=== PATIENT | male | born 1945 | race Caucasian/White ===

== ENCOUNTER 2022-05-30 10:01 | Inpatient (IN) | payer MEDICARE, SELFPAY ==
--- NOTE | 2022-05-30 | ECG_ITS ---
Test Reason : UNRESPONSIVE Blood Pressure : / mmHG Vent. Rate : 094 BPM Atrial Rate : 000 BPM P-R Int : 000 ms QRS Dur : 098 ms QT Int : 390 ms P-R-T Axes : 000 002 006 degrees QTc Int : 487 ms Atrial fibrillation with premature ventricular or aberrantly conducted complexes Nonspecific ST abnormality Prolonged QT Abnormal ECG No previous ECGs available Referred By: Zak Ignacio Electronically Signed By:Lester Messer
--- NOTE | ~2022-05-30 | CT_ITS ---
EXAMINATION: CT ABDOMEN AND PELVIS WITHOUT CONTRAST CLINICAL INFORMATION: Recurrent complicated urinary tract infection COMPARISON: None TECHNIQUE: Multidetector volumetric imaging was performed from the superior aspect of the liver through the pubic symphysis. Sagittal and coronal reformatted images were obtained on the technologist's workstation. This CT examination was performed using dose optimization techniques as appropriate, variously including the following: *Automated exposure control *Adjustment of mA and/or kV according to patient size (this includes techniques or standardized protocols for targeted exams where dose is matched to indication/reason for exam; i.e. extremities or head) *Use of iterative reconstruction technique DLP: 506 mGy-cm FINDINGS: LUNG BASES: Small bilateral pleural effusions. Left lower lobe atelectasis. Enlarged heart. Coronary artery calcifications. Pleural calcification over the diaphragm bilaterally. LIVER, GALLBLADDER, AND BILIARY TREE: The liver is normal in size, shape, and attenuation. No focal hepatic lesion or biliary ductal dilatation is present. The gallbladder is contracted with no evidence of radiopaque gallstones, gallbladder wall thickening, or obvious pericholecystic inflammatory changes. PANCREAS: Unremarkable. SPLEEN: Unremarkable. ADRENAL GLANDS: Unremarkable. KIDNEYS AND URETERS: Atrophic right kidney. Normal size left kidney. Prominent bilateral renal pelvises . The ureters are normal in caliber extending to an ileal conduit in the right lower quadrant. There is a left lower pole 0.3 cm calculus which is 8 cm from the posterior axillary line. There are at least 3 right-sided renal calculi measuring up to 0.2 cm. A lower pole calculus is 6 cm from the posterior axillary line. BLADDER: Cystoprostatectomy. Right lower quadrant ileal conduit with no gross abnormality. GASTROINTESTINAL TRACT: The stomach is unremarkable. Normal caliber small bowel. No obstruction. No colonic wall thickening or inflammation. No free air or free fluid. ABDOMINAL WALL: No significant hernia. Mild anasarca. Right lower quadrant ileal conduit. Femorofemoral bypass graft noted. LYMPH NODES: Normal. VASCULAR: Aortic stent graft in place. Prominent atherosclerotic calcifications throughout. 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 PELVIC VISCERA: Cystoprostatectomy. OSSEOUS STRUCTURES: No acute or suspicious osseous abnormality. Mild compression at the L1 vertebral body superior endplate noted. Total left hip arthroplasty without evidence of failure. CT/CT abdomen pelvis wo IV con IMPRESSION: 1. No acute findings in the abdomen or pelvis. No inflammatory changes. 2. Atrophic right kidney. Prominent bilateral renal pelvises with normal caliber ureters extending to an ileal conduit in the right lower quadrant. 3. Small bilateral pleural effusions. Fleischner guidelines were followed.
--- NOTE | ~2022-05-30 | CT_ITS ---
EXAMINATION: CT HEAD WITHOUT CONTRAST CLINICAL INFORMATION: Weakness. Change in mental status. COMPARISON: None TECHNIQUE: Contiguous axial imaging was performed from the skull base to vertex without intravenous administration of contrast. This CT examination was performed using dose optimization techniques as appropriate, variously including the following: *Automated exposure control *Adjustment of mA and/or kV according to patient size (this includes techniques or standardized protocols for targeted exams where dose is matched to indication/reason for exam; i.e. extremities or head) *Use of iterative reconstruction technique DLP: 722 mGy-cm FINDINGS: No intracranial hemorrhage, tumors or acute infarcts noted. Moderate diffuse commensurate prominence of ventricles and sulci. Confluent periventricular and subcortical white matter patchy hypodensities. Dense segmental calcific atherosclerosis of the cavernous portions of the internal carotid arteries. Bilateral optic drusen calcifications noted. No significant opacification of the visualized paranasal sinuses, mastoid air cells and middle ear cavities. CT/CT head/brain wo IV con IMPRESSION: *No acute intracranial abnormalities. *Diffuse parenchymal volume loss and chronic microangiopathic ischemic changes.
--- NOTE | ~2022-05-30 | XR_ITS ---
EXAMINATION: XR CHEST CLINICAL INFORMATION: Change in mental status COMPARISON: None TECHNIQUE: Frontal view of the chest was obtained. FINDINGS: Cardiac silhouette is normal in size. The lungs are adequately aerated. There appears to be a few subtle airspace opacities of the lower lungs. Suspected pleural calcifications of the lung bases. No gross pleural effusion. No pneumothorax. Partially visualized vascular stent of the abdomen. XR/XR chest 1V IMPRESSION: Suspected subtle airspace opacities of the lower lungs. This is a nonspecific finding and may represent atelectasis, however, a developing infiltrate is also within the differential.
[2022-05-30 10:13] VITALS: BP 166/79; BP 169/97; PULSE 95; PULSE 98; RESP 14; TEMP 36.9; O2SAT 97; O2SAT 98; BMI 23.0
[2022-05-30 10:17] VITALS: BP 169/97; PULSE 101; RESP 16; TEMP 36.9; O2SAT 99
--- NOTE | 2022-05-30 10:44 | ED_ITS ---
HPI - General Adult General Chief complaint: General Medical Stated complaint: unresponsive? Time Seen by Provider: 05/30/22 10:43 Source: patient Mode of arrival: EMS Limitations: no limitations History of Present Illness HPI narrative: 76-year-old male who was sent to the emergency department from his [facility] facility for evaluation of altered mental status. Patient states that he woke up this morning, shaved, did not eat breakfast and then went back to bed. He states that the next thing he remembers is waking up and he was being placed an ambulance. He states that he has been staying at this nursing facility for several weeks prior to that was living at home. I reviewed an outside record from [facility] dated 05/26/2022. The patient was admitted to the [facility] on 05/21/2022 for metabolic SIADH. Patient was hospitalized from 05/10 through 1227 due to acute mental status changes and weakness. The patient had asymptomatic bacteriuria and was treated with antibiotics due to chronic urostomy. Patient had electrolyte abnormalities including hypokalemia, hypomagnesemia, hyponatremia. Patient had a renal consult the felt that he had SIADH and was started on demeclocycline 150 mg twice a day., elevated D-dimer and a CTA which was negative for pulmonary embolism. EEG was negative for seizures. Related Data Allergies Allergy/AdvReac Type Severity Reaction Status Date / Time lisinopril Allergy Rash Verified 05/30/22 10:41 Review of Systems Review of Systems: Yes all other systems are reviewed and are negative [facility] Past Medical History [facility] Narrative: Past medical history: Obtained from nursing transfer note: Hyponatremia/SI ADH on fluid restriction, hypomagnesemia, hypokalemia, failure to thrive, congestive heart failure with preserved ejection fraction, atrial fibrillation with hypercoagulable state, status post Watchman device, dyslipidemia, asymptomatic bacteremia, urostomy, Medical History (Updated 05/30/22 @ 16:06 by Zak Ignacio MD) (HFpEF) heart failure with preserved ejection fraction Atrial fibrillation History of SIADH Presence of Watchman left atrial appendage closure device Surgical History (Updated 05/30/22 @ 16:05 by Wilma Matos NP) History of urostomy S/P ORIF (open reduction internal fixation) fracture Social History Social History Advance Directives: Yes Advance Directives Information Provided: No Advance Directives on File: No Physical Exam ED Vital Signs: Vital Signs - 24 hr 05/30/22 10:13 05/30/22 10:17 05/30/22 11:19 Temperature 98.4 F 98.4 F 98.3 F Pulse Rate 95 101 H 84 Respiratory Rate 14 16 16 Blood Pressure 169/97 H 169/97 H 134/74 Pulse Oximetry 97 99 98 Oxygen Delivery Method Room Air Room Air Room Air 05/30/22 13:22 Temperature Pulse Rate 86 Respiratory Rate 13 Blood Pressure 154/89 H Pulse Oximetry 98 Oxygen Delivery Method Room Air BMI result Body Mass Index 23.0 Const Other: Awake, alert, male patient, does not appear to be in distress, does answer questions appropriately, oriented to person and place HENMT Head: Yes normal to inspection, Yes normocephalic and Yes atraumatic Ears: external ears normal General nose exam: Normal external nose present Face and sinus: Yes normal facial exam Mouth: Normal oral and palatal mucosa present Throat: Yes posterior oropharynx normal Eyes General: appearance normal, both eyes and all related structures Pupils: Equal, round and reactive pupils present Neck Neck: Yes normal visual inspection, Yes no lymphadenopathy, Yes trachea midline and Yes supple Chest Chest palpation & inspection: normal inspection of the chest and normal palpation of entire chest wall Resp Effort & Inspection: normal respiratory effort and able to speak in complete sentences Auscultation: clear to auscultation bilaterally Cardio Rate: regular rate Rhythm: regular rhythm Heart sounds: S1 normal heart sound present, S2 normal heart sound present and no murmurs GI Inspection: Yes other (Right lower quadrant urostomy, clear, yellow urine in the bad) Palpation (GI): Soft to palpation, nontender and no guarding Auscultation: normal bowel sounds General: Yes no CVA tenderness Back/Spine/Pelvis Back: no CVA tenderness Skin General skin exam: no rashes or lesions noted Neuro Cranial nerves: Yes CN's II-XII intact bilaterally and Yes Equal, round and reactive pupils present Cognition (Neuro): normal cognition Motor exam (neuro): 5/5 motor strength present throughout Extrem General: Yes normal to inspection Psych Appearance: grossly normal Speech and movement: Normal speech and movement present Affect: normal affect Medications Administered Discontinued Medications Generic Name Dose Route Start Last Admin Trade Name Freq PRN Reason Stop Dose Admin Ceftriaxone Sodium 1 gm/ 50 mls @ 100 mls/hr 05/30/22 15:11 05/30/22 15:21 Sodium Chloride IV 05/30/22 15:40 100 mls/hr ONCE ONE Administration Medical Decision Making Medical Decision Making MDM Narrative: 76-year-old male who was sent to the emergency department for evaluation of altered mental status. Patient reports that he got up this morning, he then had when back to bed and he remembers waking up while he was being placed in the ambulance. Patient denied being ill prior to this event. In reviewing his record, the patient was recently hospitalized 05/10 through for multiple electrolyte abnormalities and asymptomatic bacteremia secondary to his chronic urostomy. Given this history, I ordered a CBC, CMP, lipase, BNP, magnesium, PT/INR, PTT, troponin, TSH, urinalysis, COVID-19, influenza and RSV. Two sets of blood cultures will be obtained. CT scan of the brain and chest x- ray will also be obtained. Patient will be kept on a fluid restriction. 1443: Patient's , Martha came to the emergency department and gave me more information. The patient has not been doing well since he had an elective AAA repair abrasion when women 03/11/2022 patient then had a hip fracture and was at [facility]. He then became ill was at [facility] again where he was diagnosed with the multiple electrolyte abnormalities and SIADH. The states that at the care facility at got him up this morning and help him she shape. At 09:15 hours the 8 went back to check on him and your mary ble to wake him up. He was gazing off and looking into space. The states that he has had at least 3 episodes of this type of behavior in the past either secondary to dehydration or urinary tract infection. She states that over the past 2-3 days he has complained of increased thirst but is state on a fluid restriction Laboratory radiology interpretation by me as follows: Mild anemia with an H&H of 10 and 32. Normal electrolytes. Elevated alk-phos 132. Normal TSH. AST, ALT and COVID-19 were negative. Urinalysis was positive for blood, positive leukocyte esterase, positive nitrates. Microscopic revealed 6-10 RBCs, 21-50 WBCs and 4+ bacteria-of note this comes from the patient's urostomy. Chest x-ray on my review revealed no acute findings, CT scan of the brain on my review revealed no acute findings. Given the patient's altered mental status I am concerned that he may have a urinary tract infection and may be bacteremic, he has had similar presentations in the past. I will discuss admission and antibiotic choice with covering hospitalist. 1604: I did discuss the patient's presentation with the covering hospitalist nurse-practitioner Wilma Matos, patient will be treated with ceftriaxone 1 g IV and the patient will be admitted for further management. Differential Diagnosis Differential diagnosis includes was not limited to stroke, cerebral bleed, metabolic syndrome, pneumonia, bacteremia, urinary tract infection Lab Data 05/30/22 10:49 05/30/22 10:49 Labs: Lab Results 05/30/22 05/30/22 05/30/22 Range/Units 10:49 10:49 11:10 WBC 7.7 (4.8-10.8) X10*3/uL RBC 3.71 L (4.60-5.80) X10*6/uL Hgb 10.2 L (14.0-18.0) g/dl Hct 32.5 L (42.0-52.0) % MCV 87.6 (80.0-98.0) fL MCH 27.5 (27.0-33.0) pg MCHC 31.4 (31.0-36.0) g/dl RDW 15.6 (11.0-16.0) % Plt Count 220 (160-400) X10*3/uL MPV 8.4 L (9.4-12.4) fL Immature Gran % (Auto) 0.7 H (0.0-0.4) % Neut % (Auto) 61.1 (45-73) % Lymph % (Auto) 22.7 (20-40) % Woodruff % (Auto) 8.2 (2-11) % Eos % (Auto) 6.5 H (0-4) % Baso % (Auto) 0.8 (0-2) % Lymph # (Auto) 1.7 (1.2-4.9) X10*3/uL Woodruff # (Auto) 0.6 (0.1-1.2) X10*3/uL Eos # (Auto) 0.5 H (0.0-0.4) X10*3/uL Baso # (Auto) 0.1 (0.0-0.2) X10*3/uL Abs Immat Gran (auto) 0.05 H (0.00-0.03) X10*3/uL Absolute Neuts (auto) 4.7 (2.0-8.3) x10*3/uL Absolute Nucleated RBC 0.000 (0.0-0.012) X10*3/uL Nucleated RBC % (auto) 0.0 (0.0-0.2) /100WBC PT (10.0-13.1) SEC INR (0.9-1.1) APTT (26.0-36.4) SEC Sodium 137 (135-145) mmol/L Potassium 4.3 (3.3-5.1) mmol/L Chloride 102 (96-108) mmol/L Carbon Dioxide 26 (22-29) mmol/L Anion Gap 13 (12-20) BUN 24 H (9-16) mg/dL Creatinine 1.03 (0.5-1.4) mg/dL Estim Creat Clear Calc 65.5 Estimated GFR > 60 Random Glucose 116 H (60-115) mg/dL Lactic Acid (0.5-2.0) mmol/L Calcium 10.3 H (8.4-10.2) mg/dL Magnesium 1.9 (1.6-2.6) mg/dL Total Bilirubin 0.4 (0.0-1.0) mg/dL AST 25 (5-37) U/L ALT 10 (0-40) U/L Alkaline Phosphatase 132 H (39-117) U/L Total Creatine Kinase 8 L (38-174) U/L Troponin I High Sens (<3.5-35.0) ng/L B-Natriuretic Peptide (<100) pg/mL Total Protein 6.8 (6.5-8.0) g/dL Albumin 3.4 L (3.5-5.0) g/dL Lipase 33 (8-78) U/L TSH (0.32-4.0) uIU/mL Urine Color Urine Appearance Urine pH (5.0-9.0) Ur Specific Hamilton (1.005-1.025) Urine Protein (Neg-Trace) mg/dL Urine Glucose (UA) (Negative) mg/dL Urine Ketones (Negative) mg/dL Urine Blood (Negative) Urine Nitrite (Negative) Ur Leukocyte Esterase (Negative) Urine RBC (0-2) /HPF Urine WBC (0-5) /HPF Ur Squamous Epith Cells (0-2) /HPF Urine Bacteria (None Seen) Hyaline Casts (0-2) /LPF Influenza Type A (PCR) (Negative) Influenza Type B (PCR) (Negative) RSV RNA Qual (PCR) (Negative) SARS-CoV-2 RNA (RT-PCR) (Negative) 05/30/22 05/30/22 05/30/22 Range/Units 11:10 11:10 11:10 WBC (4.8-10.8) X10*3/uL RBC (4.60-5.80) X10*6/uL Hgb (14.0-18.0) g/dl Hct (42.0-52.0) % MCV (80.0-98.0) fL MCH (27.0-33.0) pg MCHC (31.0-36.0) g/dl RDW (11.0-16.0) % Plt Count (160-400) X10*3/uL MPV (9.4-12.4) fL Immature Gran % (Auto) (0.0-0.4) % Neut % (Auto) (45-73) % Lymph % (Auto) (20-40) % Woodruff % (Auto) (2-11) % Eos % (Auto) (0-4) % Baso % (Auto) (0-2) % Lymph # (Auto) (1.2-4.9) X10*3/uL Woodruff # (Auto) (0.1-1.2) X10*3/uL Eos # (Auto) (0.0-0.4) X10*3/uL Baso # (Auto) (0.0-0.2) X10*3/uL Abs Immat Gran (auto) (0.00-0.03) X10*3/uL Absolute Neuts (auto) (2.0-8.3) x10*3/uL Absolute Nucleated RBC (0.0-0.012) X10*3/uL Nucleated RBC % (auto) (0.0-0.2) /100WBC PT 11.8 (10.0-13.1) SEC INR 1.0 (0.9-1.1) APTT 30.6 (26.0-36.4) SEC Sodium (135-145) mmol/L Potassium (3.3-5.1) mmol/L Chloride (96-108) mmol/L Carbon Dioxide (22-29) mmol/L Anion Gap (12-20) BUN (9-16) mg/dL Creatinine (0.5-1.4) mg/dL Estim Creat Clear Calc Estimated GFR Random Glucose (60-115) mg/dL Lactic Acid 1.0 (0.5-2.0) mmol/L Calcium (8.4-10.2) mg/dL Magnesium (1.6-2.6) mg/dL Total Bilirubin (0.0-1.0) mg/dL AST (5-37) U/L ALT (0-40) U/L Alkaline Phosphatase (39-117) U/L Total Creatine Kinase (38-174) U/L Troponin I High Sens (<3.5-35.0) ng/L B-Natriuretic Peptide 326 H (<100) pg/mL Total Protein (6.5-8.0) g/dL Albumin (3.5-5.0) g/dL Lipase (8-78) U/L TSH (0.32-4.0) uIU/mL Urine Color Urine Appearance Urine pH (5.0-9.0) Ur Specific Hamilton (1.005-1.025) Urine Protein (Neg-Trace) mg/dL Urine Glucose (UA) (Negative) mg/dL Urine Ketones (Negative) mg/dL Urine Blood (Negative) Urine Nitrite (Negative) Ur Leukocyte Esterase (Negative) Urine RBC (0-2) /HPF Urine WBC (0-5) /HPF Ur Squamous Epith Cells (0-2) /HPF Urine Bacteria (None Seen) Hyaline Casts (0-2) /LPF Influenza Type A (PCR) (Negative) Influenza Type B (PCR) (Negative) RSV RNA Qual (PCR) (Negative) SARS-CoV-2 RNA (RT-PCR) (Negative) 05/30/22 05/30/22 05/30/22 Range/Units 11:10 11:10 11:10 WBC (4.8-10.8) X10*3/uL RBC (4.60-5.80) X10*6/uL Hgb (14.0-18.0) g/dl Hct (42.0-52.0) % MCV (80.0-98.0) fL MCH (27.0-33.0) pg MCHC (31.0-36.0) g/dl RDW (11.0-16.0) % Plt Count (160-400) X10*3/uL MPV (9.4-12.4) fL Immature Gran % (Auto) (0.0-0.4) % Neut % (Auto) (45-73) % Lymph % (Auto) (20-40) % Woodruff % (Auto) (2-11) % Eos % (Auto) (0-4) % Baso % (Auto) (0-2) % Lymph # (Auto) (1.2-4.9) X10*3/uL Woodruff # (Auto) (0.1-1.2) X10*3/uL Eos # (Auto) (0.0-0.4) X10*3/uL Baso # (Auto) (0.0-0.2) X10*3/uL Abs Immat Gran (auto) (0.00-0.03) X10*3/uL Absolute Neuts (auto) (2.0-8.3) x10*3/uL Absolute Nucleated RBC (0.0-0.012) X10*3/uL Nucleated RBC % (auto) (0.0-0.2) /100WBC PT (10.0-13.1) SEC INR (0.9-1.1) APTT (26.0-36.4) SEC Sodium (135-145) mmol/L Potassium (3.3-5.1) mmol/L Chloride (96-108) mmol/L Carbon Dioxide (22-29) mmol/L Anion Gap (12-20) BUN (9-16) mg/dL Creatinine (0.5-1.4) mg/dL Estim Creat Clear Calc Estimated GFR Random Glucose (60-115) mg/dL Lactic Acid (0.5-2.0) mmol/L Calcium (8.4-10.2) mg/dL Magnesium (1.6-2.6) mg/dL Total Bilirubin (0.0-1.0) mg/dL AST (5-37) U/L ALT (0-40) U/L Alkaline Phosphatase (39-117) U/L Total Creatine Kinase (38-174) U/L Troponin I High Sens < 3.5 (<3.5-35.0) ng/L B-Natriuretic Peptide (<100) pg/mL Total Protein (6.5-8.0) g/dL Albumin (3.5-5.0) g/dL Lipase (8-78) U/L TSH 3.60 (0.32-4.0) uIU/mL Urine Color Urine Appearance Urine pH (5.0-9.0) Ur Specific Hamilton (1.005-1.025) Urine Protein (Neg-Trace) mg/dL Urine Glucose (UA) (Negative) mg/dL Urine Ketones (Negative) mg/dL Urine Blood (Negative) Urine Nitrite (Negative) Ur Leukocyte Esterase (Negative) Urine RBC (0-2) /HPF Urine WBC (0-5) /HPF Ur Squamous Epith Cells (0-2) /HPF Urine Bacteria (None Seen) Hyaline Casts (0-2) /LPF Influenza Type A (PCR) NEGATIVE (Negative) Influenza Type B (PCR) NEGATIVE (Negative) RSV RNA Qual (PCR) NEGATIVE (Negative) SARS-CoV-2 RNA (RT-PCR) NEGATIVE (Negative) 05/30/22 Range/Units 13:32 WBC (4.8-10.8) X10*3/uL RBC (4.60-5.80) X10*6/uL Hgb (14.0-18.0) g/dl Hct (42.0-52.0) % MCV (80.0-98.0) fL MCH (27.0-33.0) pg MCHC (31.0-36.0) g/dl RDW (11.0-16.0) % Plt Count (160-400) X10*3/uL MPV (9.4-12.4) fL Immature Gran % (Auto) (0.0-0.4) % Neut % (Auto) (45-73) % Lymph % (Auto) (20-40) % Woodruff % (Auto) (2-11) % Eos % (Auto) (0-4) % Baso % (Auto) (0-2) % Lymph # (Auto) (1.2-4.9) X10*3/uL Woodruff # (Auto) (0.1-1.2) X10*3/uL Eos # (Auto) (0.0-0.4) X10*3/uL Baso # (Auto) (0.0-0.2) X10*3/uL Abs Immat Gran (auto) (0.00-0.03) X10*3/uL Absolute Neuts (auto) (2.0-8.3) x10*3/uL Absolute Nucleated RBC (0.0-0.012) X10*3/uL Nucleated RBC % (auto) (0.0-0.2) /100WBC PT (10.0-13.1) SEC INR (0.9-1.1) APTT (26.0-36.4) SEC Sodium (135-145) mmol/L Potassium (3.3-5.1) mmol/L Chloride (96-108) mmol/L Carbon Dioxide (22-29) mmol/L Anion Gap (12-20) BUN (9-16) mg/dL Creatinine (0.5-1.4) mg/dL Estim Creat Clear Calc Estimated GFR Random Glucose (60-115) mg/dL Lactic Acid (0.5-2.0) mmol/L Calcium (8.4-10.2) mg/dL Magnesium (1.6-2.6) mg/dL Total Bilirubin (0.0-1.0) mg/dL AST (5-37) U/L ALT (0-40) U/L Alkaline Phosphatase (39-117) U/L Total Creatine Kinase (38-174) U/L Troponin I High Sens (<3.5-35.0) ng/L B-Natriuretic Peptide (<100) pg/mL Total Protein (6.5-8.0) g/dL Albumin (3.5-5.0) g/dL Lipase (8-78) U/L TSH (0.32-4.0) uIU/mL Urine Color Yellow Urine Appearance Cloudy Urine pH 7.0 (5.0-9.0) Ur Specific Hamilton 1.010 (1.005-1.025) Urine Protein Negative (Neg-Trace) mg/dL Urine Glucose (UA) Negative (Negative) mg/dL Urine Ketones Negative (Negative) mg/dL Urine Blood Small (1+) H (Negative) Urine Nitrite Positive H (Negative) Ur Leukocyte Esterase Moderate (2+) H (Negative) Urine RBC 6-10 H (0-2) /HPF Urine WBC 21-50 H (0-5) /HPF Ur Squamous Epith Cells 0-2 (0-2) /HPF Urine Bacteria 4+ (None Seen) Hyaline Casts 3-5 (0-2) /LPF Influenza Type A (PCR) (Negative) Influenza Type B (PCR) (Negative) RSV RNA Qual (PCR) (Negative) SARS-CoV-2 RNA (RT-PCR) (Negative) External Record Review External record reviewed: Outpatient record ([facility] no dated 05/26/2022)
[2022-05-30 10:53] LABS: MANUAL DIFF FLAG NO
[2022-05-30 10:59] LABS: Basophils Absolute Auto 0.1 X10*3/uL (0.0-0.2); Basophils Percent Auto 0.8 % (0-2); Eosinophils Absolute Auto 0.5 X10*3/uL (0.0-0.4); Eosinophils Percent Auto 6.5 % (0-4); Hematocrit 32.5 % (42.0-52.0); Hemoglobin 10.2 g/dl (14.0-18.0); Imm Gran Abs Auto 0.05 X10*3/uL (0.00-0.03); Imm Gran Pct Auto 0.7 % (0.0-0.4); Lymphocytes Absolute Auto 1.7 X10*3/uL (1.2-4.9); Lymphocytes Percent Auto 22.7 % (20-40); Mean Corpuscular HGB Conc 31.4 g/dl (31.0-36.0); Mean Corpuscular Hemoglobin 27.5 pg (27.0-33.0); Mean Corpuscular Volume 87.6 fL (80.0-98.0); Mean Platelet Volume 8.4 fL (9.4-12.4); Monocytes Absolute Auto 0.6 X10*3/uL (0.1-1.2); Monocytes Percent Auto 8.2 % (2-11); Neutrophils Absolute Auto 4.7 x10*3/uL (2.0-8.3); Neutrophils Percent Auto 61.1 % (45-73); Platelet Count 220 X10*3/uL (160-400); Red Blood Count 3.71 X10*6/uL (4.60-5.80); Red Cell Distribution Width 15.6 % (11.0-16.0); White Blood Count 7.7 X10*3/uL (4.8-10.8)
[2022-05-30 11:10] LABS: Alanine Aminotransferase 10 U/L (0-40); Albumin Level 3.4 g/dL (3.5-5.0); Alkaline Phosphatase 132 U/L (39-117); Anion Gap 13 (12-20); Aspartate Amino Transferase 25 U/L (5-37); Bilirubin Total 0.4 mg/dL (0.0-1.0); Blood Urea Nitrogen 24 mg/dL (9-16); Calcium 10.3 mg/dL (8.4-10.2); Carbon Dioxide 26 mmol/L (22-29); Chloride 102 mmol/L (96-108); Creatinine Clr Calc Pharmacy 65.5; Estimated Glomerular Filt Rate > 60; Glucose Random 116 mg/dL (60-115); Potassium 4.3 mmol/L (3.3-5.1); Sodium 137 mmol/L (135-145); Total Protein 6.8 g/dL (6.5-8.0)
--- NOTE | 2022-05-30 11:15 | PC.NURSE ---
Coming from SNF for period of unresponsiveness. Upon EMS arrival, pt was responding to verbal stimuli. At this time pt sleeping, alert and oriented. Responding to questions appropriately. Denies any pain. Awaiting CT and XRAY
[2022-05-30 11:19] VITALS: BP 134/74; PULSE 84; RESP 16; TEMP 36.8; O2SAT 98
[2022-05-30 11:24] LABS: Prothrombin Time 11.8 SEC (10.0-13.1)
[2022-05-30 11:26] LABS: Partial Thromboplastin Time 30.6 SEC (26.0-36.4)
[2022-05-30 11:40] LABS: Troponin-I High Sensitivity < 3.5 ng/L (<3.5-35.0)
[2022-05-30 11:41] LABS: B Type Natriuretic Peptide 326 pg/mL (<100)
[2022-05-30 11:58] LABS: Magnesium 1.9 mg/dL (1.6-2.6)
[2022-05-30 12:00] LABS: Influenza A PCR NEGATIVE (Negative); Influenza B PCR NEGATIVE (Negative); Resp Syncy Virus RNA Qual PCR NEGATIVE (Negative); SARS COV2 PCR INHOUSE NEGATIVE (Negative)
[2022-05-30 12:44] LABS: Lipase 33 U/L (8-78)
[2022-05-30 13:22] VITALS: BP 154/89; PULSE 86; RESP 13; O2SAT 98
[2022-05-30 13:42] LABS: Appearance Urine Cloudy; Color Urine Yellow; Glucose Urine UA Negative (Negative); Leukocyte Esterase Urine Moderate (2+) (Negative); Nitrite Urine Positive (Negative); UMIC TRIGGER UACC YES; Urine Blood Small (1+) (Negative); Urine Ketones Negative (Negative); Urine Protein Negative (Neg-Trace)
[2022-05-30 13:54] LABS: Bacteria Urine 4+ (None Seen); Squamous Epithelial Cell Urine 0-2 /HPF (0-2); UACC Culture Trigger YES; WBC Urine 21-50 /HPF (0-5)
--- NOTE | 2022-05-30 14:35 | PC.NURSE ---
Plan for admission, at bedside aware of plan.
--- NOTE | 2022-05-30 15:09 | PM.IMHP ---
History of Present Illness Date of Service: 05/30/22 Chief Complaint: confusion 76 year old man presenting to the ED from his group home facility for evaluation of altered mental status.? Patient states that he woke up this morning, shaved, did not eat breakfast and then went back to bed.? He states that the next thing he remembers is waking up and he was being placed an ambulance.? He states that he has been staying at this nursing facility for several weeks prior to that was living at home. After his AAA repair in 03/13 he had some medical issues that landed him in rehab including hip fracture and recent dx of SIADH at [facility]. He was subsequently sent to rehab from there. He denied chest pain, shortness breath, nausea, vomiting, diarrhea. He reports he does have a chronic cough that comes and goes but no sputum. Labs within acceptable limits, vital signs stable. He will be admitted for further management and tx of encephalopathy and UTI . Review of Systems Review of Systems: Denies any recent fever chills or decrease in appetite respiratory denies any shortness of breath coverage production cardiovascular denies chest pain gastrointestinal denies any dysphagia abdominal pain nausea vomiting or diarrhea genitourinary denies any dysuria frequency or hematuria musculoskeletal denies any joint pain or swelling neuropsych denies any weakness or seizures all other systems reviewed are negative [facility] Medical History (Updated 05/30/22 @ 16:08 by Wilma Matos NP) (HFpEF) heart failure with preserved ejection fraction Atrial fibrillation History of SIADH Hyperlipidemia Hypertension Presence of Watchman left atrial appendage closure device Pertinent family history: no cardiac disease Surgical History (Updated 05/30/22 @ 16:05 by Wilma Matos NP) History of urostomy S/P ORIF (open reduction internal fixation) fracture Social History Household Members: None Housing: Jail Do you presently have visiting nurse or other home services: No Patient Tobacco Use Status: Former Tobacco user Use of substances other than those prescribed or required for medical reasons: No Currently Displaying Signs/Symptoms of Drug Intoxication Withdrawal: No Have you been hit, kicked, punched, or otherwise hurt by someone within the past year? If so, by whom?: No Do you feel safe in your current relationship?: Yes Is there a partner from a previous relationship who is making you feel unsafe now?: No Are you made to feel afraid or neglected: No Advance Directives: Yes Advance Directives Information Provided: No Advance Directives on File: No Advance Directives Date on File: 05/30/22 Do you have thoughts of harming others: None Do you have a plan to hurt others: No Plan Recently lost weight without trying: No Eating poorly because of decreased appetite: No Nutrition Risks: No Nutritional Risk Poor oral hygiene: No service: No Current occupational status: retired Meds Allergies Allergy/AdvReac Type Severity Reaction Status Date / Time lisinopril Allergy Rash Verified 05/30/22 10:41 Home Medications Medication Instructions Recorded Confirmed Last Taken Type acetaminophen 325 mg tablet 650 mg PO Q4H PRN Pain 05/30/22 05/30/22 Unknown History albuterol sulfate 90 mcg/actuation 2 puff inhalation Q4-6H PRN 05/30/22 05/30/22 Unknown History aerosol inhaler (ProAir HFA) Wheezing aspirin 81 mg tablet,delayed 81 mg PO DAILY 05/30/22 05/30/22 Unknown History release brimonidine 0.2 % eye drops 1 drp ophthalmic (eye) DAILY 05/30/22 05/30/22 Unknown History demeclocycline 150 mg tablet 150 mg PO BID 05/30/22 05/30/22 Unknown History diltiazem HCl 120 mg 1 cap PO DAILY 05/30/22 05/30/22 Unknown History capsule,extended release 24 hr (Cartia XT) docusate sodium 100 mg capsule 100 mg PO BID 05/30/22 05/30/22 Unknown History (Colace) heparin (porcine) 5,000 unit/mL 5,000 unit subcut Q12H 05/30/22 05/30/22 Unknown History injection solution magnesium oxide 400 mg (241.3 mg 400 mg PO BID 05/30/22 05/30/22 Unknown History magnesium) tablet (MagOx) metoprolol succinate 100 mg 150 mg PO DAILY 05/30/22 05/30/22 Unknown History tablet,extended release 24 hr mirtazapine 15 mg tablet 15 mg PO BEDTIME 05/30/22 05/30/22 Unknown History sennosides 8.6 mg tablet (senna) 8.6 mg PO DAILY 05/30/22 05/30/22 Unknown History simvastatin 10 mg tablet 10 mg PO DAILY 05/30/22 05/30/22 Unknown History Physical Exam Vital Signs and Narrative: Vital Signs: Last Vital Signs Temp 98.3 F 05/30/22 11:19 Pulse 86 05/30/22 13:22 Resp 13 05/30/22 13:22 BP 154/89 H 05/30/22 13:22 Pulse Ox 98 05/30/22 13:22 O2 Del Method 05/30/22 13:22 BMI result Body Mass Index 23.0 Appearing in no acute distress head is normocephalic atraumatic eyes pupils are PERRLA sclera is anicteric mouth throat mucous membranes are intact and moist neck is supple no lymphadenopathy, no JVD noted lung sounds Rhonchi heart IRIR positive bowel sounds, abdomen is soft, nontender neuro patient is alert x3, no focal deficits Bruising to LE urostomy present Results Labs 05/30/22 10:49 05/30/22 10:49 Labs: Laboratory Results - last 24 hr 05/30/22 05/30/22 05/30/22 10:49 10:49 11:10 MCV 87.6 MCH 27.5 MCHC 31.4 RDW 15.6 Plt Count 220 MPV 8.4 L Immature Gran % (Auto) 0.7 H Neut % (Auto) 61.1 Lymph % (Auto) 22.7 [place] % (Auto) 8.2 Eos % (Auto) 6.5 H Baso % (Auto) 0.8 Lymph # (Auto) 1.7 [place] # (Auto) 0.6 Eos # (Auto) 0.5 H Baso # (Auto) 0.1 Abs Immat Gran (auto) 0.05 H Absolute Neuts (auto) 4.7 Absolute Nucleated RBC 0.000 Nucleated RBC % (auto) 0.0 PT INR APTT Anion Gap 13 Estim Creat Clear Calc 65.5 Estimated GFR > 60 Random Glucose 116 H Lactic Acid Calcium 10.3 H Magnesium 1.9 Total Bilirubin 0.4 AST 25 ALT 10 Alkaline Phosphatase 132 H Total Creatine Kinase 8 L Troponin I High Sens B-Natriuretic Peptide Total Protein 6.8 Albumin 3.4 L Lipase 33 TSH Urine Color Urine Appearance Urine pH Ur Specific [place] Urine Protein Urine Glucose (UA) Urine Ketones Urine Blood Urine Nitrite Ur Leukocyte Esterase Urine RBC Urine WBC Ur Squamous Epith Cells Urine Bacteria Hyaline Casts Influenza Type A (PCR) Influenza Type B (PCR) RSV RNA Qual (PCR) SARS-CoV-2 RNA (RT-PCR) 05/30/22 05/30/22 05/30/22 11:10 11:10 11:10 MCV MCH MCHC RDW Plt Count MPV Immature Gran % (Auto) Neut % (Auto) Lymph % (Auto) [place] % (Auto) Eos % (Auto) Baso % (Auto) Lymph # (Auto) [place] # (Auto) Eos # (Auto) Baso # (Auto) Abs Immat Gran (auto) Absolute Neuts (auto) Absolute Nucleated RBC Nucleated RBC % (auto) PT 11.8 INR 1.0 APTT 30.6 Anion Gap Estim Creat Clear Calc Estimated GFR Random Glucose Lactic Acid 1.0 Calcium Magnesium Total Bilirubin AST ALT Alkaline Phosphatase Total Creatine Kinase Troponin I High Sens B-Natriuretic Peptide 326 H Total Protein Albumin Lipase TSH Urine Color Urine Appearance Urine pH Ur Specific [place] Urine Protein Urine Glucose (UA) Urine Ketones Urine Blood Urine Nitrite Ur Leukocyte Esterase Urine RBC Urine WBC Ur Squamous Epith Cells Urine Bacteria Hyaline Casts Influenza Type A (PCR) Influenza Type B (PCR) RSV RNA Qual (PCR) SARS-CoV-2 RNA (RT-PCR) 05/30/22 05/30/22 05/30/22 11:10 11:10 11:10 MCV MCH MCHC RDW Plt Count MPV Immature Gran % (Auto) Neut % (Auto) Lymph % (Auto) [place] % (Auto) Eos % (Auto) Baso % (Auto) Lymph # (Auto) [place] # (Auto) Eos # (Auto) Baso # (Auto) Abs Immat Gran (auto) Absolute Neuts (auto) Absolute Nucleated RBC Nucleated RBC % (auto) PT INR APTT Anion Gap Estim Creat Clear Calc Estimated GFR Random Glucose Lactic Acid Calcium Magnesium Total Bilirubin AST ALT Alkaline Phosphatase Total Creatine Kinase Troponin I High Sens < 3.5 B-Natriuretic Peptide Total Protein Albumin Lipase TSH 3.60 Urine Color Urine Appearance Urine pH Ur Specific [place] Urine Protein Urine Glucose (UA) Urine Ketones Urine Blood Urine Nitrite Ur Leukocyte Esterase Urine RBC Urine WBC Ur Squamous Epith Cells Urine Bacteria Hyaline Casts Influenza Type A (PCR) NEGATIVE Influenza Type B (PCR) NEGATIVE RSV RNA Qual (PCR) NEGATIVE SARS-CoV-2 RNA (RT-PCR) NEGATIVE 05/30/22 13:32 MCV MCH MCHC RDW Plt Count MPV Immature Gran % (Auto) Neut % (Auto) Lymph % (Auto) [place] % (Auto) Eos % (Auto) Baso % (Auto) Lymph # (Auto) [place] # (Auto) Eos # (Auto) Baso # (Auto) Abs Immat Gran (auto) Absolute Neuts (auto) Absolute Nucleated RBC Nucleated RBC % (auto) PT INR APTT Anion Gap Estim Creat Clear Calc Estimated GFR Random Glucose Lactic Acid Calcium Magnesium Total Bilirubin AST ALT Alkaline Phosphatase Total Creatine Kinase Troponin I High Sens B-Natriuretic Peptide Total Protein Albumin Lipase TSH Urine Color Yellow Urine Appearance Cloudy Urine pH 7.0 Ur Specific [place] 1.010 Urine Protein Negative Urine Glucose (UA) Negative Urine Ketones Negative Urine Blood Small (1+) H Urine Nitrite Positive H Ur Leukocyte Esterase Moderate (2+) H Urine RBC 6-10 H Urine WBC 21-50 H Ur Squamous Epith Cells 0-2 Urine Bacteria 4+ Hyaline Casts 3-5 Influenza Type A (PCR) Influenza Type B (PCR) RSV RNA Qual (PCR) SARS-CoV-2 RNA (RT-PCR) Imaging Radiologist's Impressions: Impressions Chest X-Ray 05/30/22 12:09 IMPRESSION: Suspected subtle airspace opacities of the lower lungs. This is a nonspecific finding and may represent atelectasis, however, a developing infiltrate is also within the differential. Head CT 05/30/22 12:50 IMPRESSION: *No acute intracranial abnormalities. *Diffuse parenchymal volume loss and chronic microangiopathic ischemic changes. Assessment and Plan (1) Acute alteration in mental status: Status: Acute Plan 76 year old man presenting with acute encephalopathy secondary to urinary tract infection with history of urostomy Acute encephalopathy secondary to UTI hx of similar symptoms in the past, likely some degree of colonization with urostomy however will treat because patient is symptomatic Rocephin follow cx follow neuro status Possible CAP Rocephin and azithromycin supplemental oxygen as needed robitussin for cough paroxysmal afib no RVR continue BB and AC normocytic anemia no bleeding stable monitor Hypertension with elevated blood pressure readings continue furosemide and metoprolol HLD plavix and statin DVT prophylaxis with Attending Dr. Padilla Full code 2 inpatient midnights for tx of encephalopathy and UTI Time Spent With Patient Time: Total time managing care of this patient today ____ minutes. Quality Stroke Does the patient have a stroke diagnosis?: No VTE Prior VTE?: No VTE Risk Level:: Medical - moderate - high VTE Device Contraindication: Treatment Not Indicated VTE Drug Contraindication: N/A - Med Ordered
[2022-05-30] MEDS: cefTRIAXone sodium 1 GM in 0.9 % Sodium Chloride 50 ML IV (15:21)
--- NOTE | 2022-05-30 17:08 | PHA.MEDREC ---
Pharmacy Consult ? Medication Reconciliation Pharmacy has completed the medication reconciliation.
[2022-05-30 17:55] VITALS: BP 169/98; PULSE 93; RESP 18; TEMP 36.7; O2SAT 97
[2022-05-30 19:28] VITALS: BP 135/93; PULSE 71; RESP 18; TEMP 36.2; O2SAT 98
[2022-05-30] MEDS: Heparin Sodium,Porcine 5,000 UNIT/ML VIAL 5000 UNIT SUBCUT (20:27)
[2022-05-30] MEDS: Mirtazapine 15 MG TABLET PO (20:27)
[2022-05-30] MEDS: Magnesium Oxide 400 MG TABLET PO (20:27)
[2022-05-30] MEDS: 0.9 % Sodium Chloride Flush 3 ML SYRINGE IVFLUSH (20:28)
[2022-05-30] MEDS: Docusate Sodium 100 MG CAPSULE PO (20:28)
[2022-05-31] VITALS (8 sets, daily range): BP systolic 97–138; BP diastolic 51–79; PULSE 66–101; RESP 14–18; TEMP 36.2–36.6; O2SAT 92–99
[2022-05-31 05:31] LABS: MANUAL DIFF FLAG NO
[2022-05-31 05:34] LABS: Basophils Absolute Auto 0.1 X10*3/uL (0.0-0.2); Basophils Percent Auto 0.7 % (0-2); Eosinophils Absolute Auto 0.6 X10*3/uL (0.0-0.4); Eosinophils Percent Auto 8.8 % (0-4); Hematocrit 30.2 % (42.0-52.0); Hemoglobin 9.7 g/dl (14.0-18.0); Imm Gran Abs Auto 0.02 X10*3/uL (0.00-0.03); Imm Gran Pct Auto 0.3 % (0.0-0.4); Lymphocytes Absolute Auto 1.7 X10*3/uL (1.2-4.9); Lymphocytes Percent Auto 24.6 % (20-40); Mean Corpuscular HGB Conc 32.1 g/dl (31.0-36.0); Mean Corpuscular Hemoglobin 27.6 pg (27.0-33.0); Mean Corpuscular Volume 85.8 fL (80.0-98.0); Mean Platelet Volume 8.7 fL (9.4-12.4); Monocytes Absolute Auto 0.6 X10*3/uL (0.1-1.2); Monocytes Percent Auto 8.5 % (2-11); Neutrophils Percent Auto 57.1 % (45-73); Platelet Count 215 X10*3/uL (160-400); Red Blood Count 3.52 X10*6/uL (4.60-5.80); Red Cell Distribution Width 15.5 % (11.0-16.0)
[2022-05-31 05:49] LABS: Anion Gap 13 (12-20); Blood Urea Nitrogen 22 mg/dL (9-16); Calcium 10.2 mg/dL (8.4-10.2); Carbon Dioxide 25 mmol/L (22-29); Chloride 102 mmol/L (96-108); Creatinine Clr Calc Pharmacy 74.1; Estimated Glomerular Filt Rate > 60; Glucose Random 105 mg/dL (60-115); Potassium 4.1 mmol/L (3.3-5.1); Sodium 136 mmol/L (135-145)
[2022-05-31] MEDS: Heparin Sodium,Porcine 5,000 UNIT/ML VIAL 5000 UNIT SUBCUT ×2 (06:19→18:11)
[2022-05-31] MEDS: Metoprolol Succinate ER 50 MG TAB.ER.24H 150 MG PO (08:17)
[2022-05-31] MEDS: Atorvastatin Calcium 10 MG TABLET PO (08:18)
[2022-05-31] MEDS: Aspirin Enteric Coated 81 MG TABLET.DR PO (08:18)
[2022-05-31] MEDS: dilTIAZem HCL CD 120 MG CAP.ER.DEG PO (08:18)
[2022-05-31] MEDS: Docusate Sodium 100 MG CAPSULE PO ×2 (08:19→20:06)
[2022-05-31] MEDS: 0.9 % Sodium Chloride Flush 3 ML SYRINGE IVFLUSH ×3 (08:19→20:07)
[2022-05-31] MEDS: Magnesium Oxide 400 MG TABLET PO ×2 (08:20→20:07)
[2022-05-31] MEDS: Sennosides 8.6 MG TABLET PO (08:20)
[2022-05-31] MEDS: Albuterol Sulfate (0.083%) 2.5 MG/3 ML VIAL.NEB INHALE ×2 (08:57→19:27)
[2022-05-31] MEDS: Brimonidine Tartrate 0.2% Oph 5 ML BOTTLE 1 DROP EYE-BOTH (09:21)
--- NOTE | 2022-05-31 10:11 | P.PNIM_ITS ---
Subjective Subjective Date of Service: 05/31/22 Review of Systems Follow-up encephalopathy any UTI Looking better today, eating breakfast no complaints of pain Physical Exam Vital Signs: Vital Signs: Last Vital Signs Temp 97.2 F 05/31/22 08:00 Pulse 78 05/31/22 08:58 Resp 18 05/31/22 08:58 BP 138/77 05/31/22 08:00 Pulse Ox 99 05/31/22 08:00 O2 Del Method 05/31/22 08:00 BMI result Body Mass Index 23.0 Appearing in no acute distress lung sounds are clear to auscultation heart regular rate rhythm, clear S1, S2 positive bowel sounds, abdomen is soft, nontender neuro patient is alert x3, no focal deficits Objective Data Active Medications Acetaminophen (Acetaminophen 325 Mg Tablet) 650 mg PO Q6H PRN PRN Reason: Pain, Mild (Pain Scale 1-3) Albuterol Sulfate (Albuterol Sulfate (0.083%) 2.5 Mg/3 Ml Vial.Neb) 2.5 mg INHALE RQ4H WHILE AWAKE [facility] Last Admin: 05/31/22 08:57 Dose: 2.5 mg Documented By: DARCY Aspirin (Aspirin Enteric Coated 81 Mg Tablet.Dr) 81 mg PO DAILY [facility] Last Admin: 05/31/22 08:18 Dose: 81 mg Documented By: STEPHANI Atorvastatin Calcium (Atorvastatin Calcium 10 Mg Tablet) 10 mg PO DAILY [facility] Last Admin: 05/31/22 08:18 Dose: 10 mg Documented By: STEPHANI Brimonidine Tartrate (Brimonidine Tartrate 0.2% Oph 5 Ml Bottle) 1 drop EYE- BOTH DAILY [facility] Last Admin: 05/31/22 09:21 Dose: 1 drop Documented By: STEPHANI Diltiazem HCl (Diltiazem Hcl Cd 120 Mg Cap.Er.Deg) 120 mg PO DAILY [facility]; Protocol Last Admin: 05/31/22 08:18 Dose: 120 mg Documented By: STEPHANI Docusate Sodium (Docusate Sodium 100 Mg Capsule) 100 mg PO BID [facility] Last Admin: 05/31/22 08:19 Dose: 100 mg Documented By: STEPHANI Guaifenesin (Guaifenesin 100 Mg/5 Ml Liquid) 5 ml PO Q4H PRN PRN Reason: Cough Heparin Sodium (Porcine) (Heparin Sodium,Porcine 5,000 Unit/Ml Vial) 5,000 unit SUBCUT Q12H [facility] Last Admin: 05/31/22 06:19 Dose: 5,000 unit Documented By: JENNIFER Ceftriaxone Sodium 1 gm/ (Sodium Chloride) 50 mls @ 100 mls/hr IV Q24H [facility] Magnesium Oxide (Magnesium Oxide 400 Mg Tablet) 400 mg PO BID [facility] Last Admin: 05/31/22 08:20 Dose: 400 mg Documented By: STEPHANI Metoprolol Succinate (Metoprolol Succinate Er 50 Mg Tab.Er.24h) 150 mg PO DAILY [facility]; Protocol Last Admin: 05/31/22 08:17 Dose: 150 mg Documented By: STEPHANI Mirtazapine (Mirtazapine 15 Mg Tablet) 15 mg PO BEDTIME [facility] Last Admin: 05/30/22 20:27 Dose: 15 mg Documented By: JENNIFER Non-Formulary Medication (Demeclocycline) 150 mg PO BID [facility] Ondansetron HCl (Ondansetron Hcl 4 Mg/2 Ml Vial) 4 mg IVPUSH Q8H PRN PRN Reason: Nausea and Vomiting Pharmacy Consult (Consult Rx Perform Med Rec) 1 each MISCELLANE ONCE PRN PRN Reason: Consult order Senna (Sennosides 8.6 Mg Tablet) 8.6 mg PO DAILY [facility] Last Admin: 05/31/22 08:20 Dose: 8.6 mg Documented By: STEPHANI Sodium Chloride (0.9 % Sodium Chloride Flush 3 Ml Syringe) 3 ml IVFLUSH QSHIFT [facility] Last Admin: 05/31/22 08:19 Dose: 3 ml Documented By: STEPHANI Labs 05/31/22 05:22 05/31/22 05:22 Labs: Laboratory Results - last 24 hr 05/30/22 05/30/22 05/30/22 10:49 10:49 11:10 MCV 87.6 MCH 27.5 MCHC 31.4 RDW 15.6 Plt Count 220 MPV 8.4 L Immature Gran % (Auto) 0.7 H Neut % (Auto) 61.1 Lymph % (Auto) 22.7 [place] % (Auto) 8.2 Eos % (Auto) 6.5 H Baso % (Auto) 0.8 Lymph # (Auto) 1.7 [place] # (Auto) 0.6 Eos # (Auto) 0.5 H Baso # (Auto) 0.1 Abs Immat Gran (auto) 0.05 H Absolute Neuts (auto) 4.7 Absolute Nucleated RBC 0.000 Nucleated RBC % (auto) 0.0 PT INR APTT Anion Gap 13 Estim Creat Clear Calc 65.5 Estimated GFR > 60 Random Glucose 116 H Lactic Acid Calcium 10.3 H Magnesium 1.9 Total Bilirubin 0.4 AST 25 ALT 10 Alkaline Phosphatase 132 H Total Creatine Kinase 8 L Troponin I High Sens B-Natriuretic Peptide Total Protein 6.8 Albumin 3.4 L Lipase 33 TSH Urine Color Urine Appearance Urine pH Ur Specific [place] Urine Protein Urine Glucose (UA) Urine Ketones Urine Blood Urine Nitrite Ur Leukocyte Esterase Urine RBC Urine WBC Ur Squamous Epith Cells Urine Bacteria Hyaline Casts Influenza Type A (PCR) Influenza Type B (PCR) RSV RNA Qual (PCR) SARS-CoV-2 RNA (RT-PCR) 05/30/22 05/30/22 05/30/22 11:10 11:10 11:10 MCV MCH MCHC RDW Plt Count MPV Immature Gran % (Auto) Neut % (Auto) Lymph % (Auto) [place] % (Auto) Eos % (Auto) Baso % (Auto) Lymph # (Auto) [place] # (Auto) Eos # (Auto) Baso # (Auto) Abs Immat Gran (auto) Absolute Neuts (auto) Absolute Nucleated RBC Nucleated RBC % (auto) PT 11.8 INR 1.0 APTT 30.6 Anion Gap Estim Creat Clear Calc Estimated GFR Random Glucose Lactic Acid 1.0 Calcium Magnesium Total Bilirubin AST ALT Alkaline Phosphatase Total Creatine Kinase Troponin I High Sens B-Natriuretic Peptide 326 H Total Protein Albumin Lipase TSH Urine Color Urine Appearance Urine pH Ur Specific [place] Urine Protein Urine Glucose (UA) Urine Ketones Urine Blood Urine Nitrite Ur Leukocyte Esterase Urine RBC Urine WBC Ur Squamous Epith Cells Urine Bacteria Hyaline Casts Influenza Type A (PCR) Influenza Type B (PCR) RSV RNA Qual (PCR) SARS-CoV-2 RNA (RT-PCR) 05/30/22 05/30/22 05/30/22 11:10 11:10 11:10 MCV MCH MCHC RDW Plt Count MPV Immature Gran % (Auto) Neut % (Auto) Lymph % (Auto) [place] % (Auto) Eos % (Auto) Baso % (Auto) Lymph # (Auto) [place] # (Auto) Eos # (Auto) Baso # (Auto) Abs Immat Gran (auto) Absolute Neuts (auto) Absolute Nucleated RBC Nucleated RBC % (auto) PT INR APTT Anion Gap Estim Creat Clear Calc Estimated GFR Random Glucose Lactic Acid Calcium Magnesium Total Bilirubin AST ALT Alkaline Phosphatase Total Creatine Kinase Troponin I High Sens < 3.5 B-Natriuretic Peptide Total Protein Albumin Lipase TSH 3.60 Urine Color Urine Appearance Urine pH Ur Specific [place] Urine Protein Urine Glucose (UA) Urine Ketones Urine Blood Urine Nitrite Ur Leukocyte Esterase Urine RBC Urine WBC Ur Squamous Epith Cells Urine Bacteria Hyaline Casts Influenza Type A (PCR) NEGATIVE Influenza Type B (PCR) NEGATIVE RSV RNA Qual (PCR) NEGATIVE SARS-CoV-2 RNA (RT-PCR) NEGATIVE 05/30/22 05/31/22 05/31/22 13:32 05:22 05:22 MCV 85.8 MCH 27.6 MCHC 32.1 RDW 15.5 Plt Count 215 MPV 8.7 L Immature Gran % (Auto) 0.3 Neut % (Auto) 57.1 Lymph % (Auto) 24.6 [place] % (Auto) 8.5 Eos % (Auto) 8.8 H Baso % (Auto) 0.7 Lymph # (Auto) 1.7 [place] # (Auto) 0.6 Eos # (Auto) 0.6 H Baso # (Auto) 0.1 Abs Immat Gran (auto) 0.02 Absolute Neuts (auto) 4.0 Absolute Nucleated RBC 0.000 Nucleated RBC % (auto) 0.0 PT INR APTT Anion Gap 13 Estim Creat Clear Calc 74.1 Estimated GFR > 60 Random Glucose 105 Lactic Acid Calcium 10.2 Magnesium Total Bilirubin AST ALT Alkaline Phosphatase Total Creatine Kinase Troponin I High Sens B-Natriuretic Peptide Total Protein Albumin Lipase TSH Urine Color Yellow Urine Appearance Cloudy Urine pH 7.0 Ur Specific [place] 1.010 Urine Protein Negative Urine Glucose (UA) Negative Urine Ketones Negative Urine Blood Small (1+) H Urine Nitrite Positive H Ur Leukocyte Esterase Moderate (2+) H Urine RBC 6-10 H Urine WBC 21-50 H Ur Squamous Epith Cells 0-2 Urine Bacteria 4+ Hyaline Casts 3-5 Influenza Type A (PCR) Influenza Type B (PCR) RSV RNA Qual (PCR) SARS-CoV-2 RNA (RT-PCR) Microbiology Microbiology Results: Microbiology 05/30/22 Unknown Urine Culture - Preliminary Urine clean catch - Urine johnson top Gram negative jyoti Assessment and Plan (1) Urinary tract infection: Status: Acute Plan 76 year old man presenting with acute encephalopathy secondary to urinary tract infection with history of urostomy Acute encephalopathy secondary to GNR UTI hx of similar symptoms in the past, likely some degree of colonization with urostomy however will treat because patient is symptomatic Rocephin follow blood cx follow neuro status Possible CAP Rocephin and azithromycin supplemental oxygen as needed robitussin for cough paroxysmal afib no RVR continue BB and AC normocytic anemia no bleeding stable monitor Hypertension with elevated blood pressure readings continue furosemide and metoprolol HLD plavix and statin DVT prophylaxis with heparin Attending Dr. Butterfield Full code DISPO PT meryl, discussed with patients , she would like him to go back to rehab continued hospitalization for tx of encephalopathy and UTI Time Spent With Patient Time: Total time managing care of this patient today ____ minutes. Quality Stroke Does the patient have a stroke diagnosis?: No VTE Prior VTE?: No VTE Risk Level:: Medical - moderate - high VTE Device Contraindication: Treatment Not Indicated VTE Drug Contraindication: N/A - Med Ordered
[2022-05-31] MEDS: Azithromycin 500 MG TABLET PO (11:28)
[2022-05-31] MEDS: guaiFENesin 100 MG/5 ML LIQUID PO ×2 (11:28→20:07)
[2022-05-31] MEDS: cefTRIAXone sodium 1 GM in 0.9 % Sodium Chloride 50 ML IV (14:43)
--- NOTE | 2022-05-31 16:29 | MHC.CM.PN ---
IMM 05/31/22, CM MET W/PT THIS AM AND LATER IN SHIFT TO CLARIFY A FEW THINGS W/PT'S STIVEN PT WAS GROGGY DURING ASSESSMENT IN AM. PT REPORTS HE LIVES W/ AND HAS A WALKER AT HOME AND DENIES ANY OTHER DME. PT'S DOES REPORT THEY USED [facility] IN THE PAST AND WOULD LIKE THEM AGAIN IF PT IS WELL ENOUGH WHEN MEDICALLY CLEARED HOWEVER IT IS LIKELY PT WILL RETURN TO [facility]. PT'S ALSO CONSIDERING CHANGING PT'S REHAB TO [facility] OR [facility] IT WOULD BE CLOSER TO HOME ([facility]).
--- NOTE | 2022-05-31 18:37 | PC.NURSE ---
Pt is alert and oriented x3 but is very hard of hearing especially on the left ear. He has Hearing aid on the right side. Pt continues on Ceftriaxone and started on Azthromycin for UTI. Blood cx came back postive with gram negative rods. Urostomy bag changed. Overnight bag applied
[2022-05-31] MEDS: Mirtazapine 15 MG TABLET PO (20:06)
[2022-06-01 03:50] VITALS: BP 137/70; PULSE 89; RESP 16; TEMP 36.5; O2SAT 96
[2022-06-01] MEDS: Heparin Sodium,Porcine 5,000 UNIT/ML VIAL 5000 UNIT SUBCUT ×2 (06:05→15:58)
[2022-06-01 07:42] VITALS: BP 143/92; PULSE 96; RESP 20; TEMP 36.5; O2SAT 99
[2022-06-01] MEDS: Albuterol Sulfate (0.083%) 2.5 MG/3 ML VIAL.NEB INHALE ×2 (07:45→11:19)
[2022-06-01 07:51] VITALS: PULSE 90; RESP 16; O2SAT 97
[2022-06-01] MEDS: Metoprolol Succinate ER 50 MG TAB.ER.24H 150 MG PO (08:39)
[2022-06-01] MEDS: Atorvastatin Calcium 10 MG TABLET PO (08:39)
[2022-06-01] MEDS: dilTIAZem HCL CD 120 MG CAP.ER.DEG PO (08:39)
[2022-06-01] MEDS: Sennosides 8.6 MG TABLET PO (08:39)
[2022-06-01] MEDS: Docusate Sodium 100 MG CAPSULE PO ×2 (08:39→20:23)
[2022-06-01] MEDS: Brimonidine Tartrate 0.2% Oph 5 ML BOTTLE 1 DROP EYE-BOTH (08:39)
[2022-06-01] MEDS: Magnesium Oxide 400 MG TABLET PO ×2 (08:39→20:25)
[2022-06-01] MEDS: Aspirin Enteric Coated 81 MG TABLET.DR PO (08:39)
--- NOTE | 2022-06-01 08:45 | P.CDIC_ITS ---
CDI Concurrent Query Documentation Clarification: PHYSICIAN'S DOCUMENTATION REQUEST Date of Query: 06/01/22 0846 Patient Name: Jemal Kevin Admit Date: 05/30/22 Dear Doctor, A review of the medical record indicates additional documentation may be needed. Please review below and update the documentation accordingly. Clinical Indicators: Risk Factors/Clinical Indicators/Treatments PN: Assessment/plan: Acute encephalopathy secondary to GNR UTI. Based on the above, please further specify, in the Progress Notes, the known or suspected type of the documented encephalopathy: * Metabolic * Toxic * Toxic metabolic * Other (please specify) * Unable to determine Use of terms such as suspected, likely, concern for, or probable (associated with a specific diagnosis that is being evaluated, monitored, or treated as if it exists) are acceptable and can be coded in the inpatient setting, when documented at the time of discharge. Thank you, Edwina Arizmendi [facility], CDIS Extension: [phone] Please use your independent medical judgment in providing your response. THIS QUERY IS PART OF THE PERMANENT MEDICAL RECORD Other Diagnosis: see note
--- NOTE | 2022-06-01 08:55 | P.PNIM_ITS ---
Subjective Subjective Date of Service: 06/01/22 Review of Systems Follow-up encephalopathy any UTI Looking better today, eating breakfast asking why the police were in the room. thought the RN was a police commissioner no complaints of pain Physical Exam Vital Signs: Vital Signs: Last Vital Signs Temp 97.7 F 06/01/22 07:42 Pulse 90 06/01/22 07:51 Resp 16 06/01/22 07:51 BP 143/92 H 06/01/22 07:42 Pulse Ox 99 06/01/22 07:42 O2 Del Method 06/01/22 07:42 BMI result Body Mass Index 23.0 Appearing in no acute distress lung sounds are clear to auscultation heart regular rate rhythm, clear S1, S2 positive bowel sounds, abdomen is soft, nontender neuro patient is alert x3, no focal deficits Objective Data Active Medications Acetaminophen (Acetaminophen 325 Mg Tablet) 650 mg PO Q6H PRN PRN Reason: Pain, Mild (Pain Scale 1-3) Albuterol Sulfate (Albuterol Sulfate (0.083%) 2.5 Mg/3 Ml Vial.Neb) 2.5 mg INHALE RQ4H WHILE AWAKE [facility] Last Admin: 06/01/22 07:45 Dose: 2.5 mg Documented By: SCOTTY Aspirin (Aspirin Enteric Coated 81 Mg Tablet.) 81 mg PO DAILY [facility] Last Admin: 06/01/22 08:39 Dose: 81 mg Documented By: KANG Atorvastatin Calcium (Atorvastatin Calcium 10 Mg Tablet) 10 mg PO DAILY [facility] Last Admin: 06/01/22 08:39 Dose: 10 mg Documented By: KANG Azithromycin (Azithromycin 500 Mg Tablet) 500 mg PO Q24H [facility] Last Admin: 05/31/22 11:28 Dose: 500 mg Documented By: STEPHANI Brimonidine Tartrate (Brimonidine Tartrate 0.2% Oph 5 Ml Bottle) 1 drop EYE- BOTH DAILY [facility] Last Admin: 06/01/22 08:39 Dose: 1 drop Documented By: KANG Diltiazem HCl (Diltiazem Hcl Cd 120 Mg Cap.Er.Deg) 120 mg PO DAILY [facility]; Protocol Last Admin: 06/01/22 08:39 Dose: 120 mg Documented By: KANG Docusate Sodium (Docusate Sodium 100 Mg Capsule) 100 mg PO BID [facility] Last Admin: 06/01/22 08:39 Dose: 100 mg Documented By: KANG Guaifenesin (Guaifenesin 100 Mg/5 Ml Liquid) 5 ml PO Q4H PRN PRN Reason: Cough Last Admin: 05/31/22 20:07 Dose: 5 ml Documented By: JENNIFER Guaifenesin (Guaifenesin 100 Mg/5 Ml Liquid) 5 ml PO Q4H PRN PRN Reason: Cough Heparin Sodium (Porcine) (Heparin Sodium,Porcine 5,000 Unit/Ml Vial) 5,000 unit SUBCUT Q12H [facility] Last Admin: 06/01/22 06:05 Dose: 5,000 unit Documented By: JENNIFER Ceftriaxone Sodium 1 gm/ (Sodium Chloride) 50 mls @ 100 mls/hr IV Q24H [facility] Last Infusion: 05/31/22 15:21 Dose: 0 mls/hr Documented By: STEPHANI Magnesium Oxide (Magnesium Oxide 400 Mg Tablet) 400 mg PO BID [facility] Last Admin: 06/01/22 08:39 Dose: 400 mg Documented By: KANG Metoprolol Succinate (Metoprolol Succinate Er 50 Mg Tab.Er.24h) 150 mg PO DAILY [facility]; Protocol Last Admin: 06/01/22 08:39 Dose: 150 mg Documented By: KANG Mirtazapine (Mirtazapine 15 Mg Tablet) 15 mg PO BEDTIME [facility] Last Admin: 05/31/22 20:06 Dose: 15 mg Documented By: JENNIFER Non-Formulary Medication (Demeclocycline) 150 mg PO BID [facility] Ondansetron HCl (Ondansetron Hcl 4 Mg/2 Ml Vial) 4 mg IVPUSH Q8H PRN PRN Reason: Nausea and Vomiting Pharmacy Consult (Consult Rx Perform Med Rec) 1 each MISCELLANE ONCE PRN PRN Reason: Consult order Senna (Sennosides 8.6 Mg Tablet) 8.6 mg PO DAILY [facility] Last Admin: 06/01/22 08:39 Dose: 8.6 mg Documented By: KANG Sodium Chloride (0.9 % Sodium Chloride Flush 3 Ml Syringe) 3 ml IVFLUSH QSHIFT [facility] Last Admin: 06/01/22 07:18 Dose: Not Given Documented By: KANG Non-Admin Reason: See Note Labs 05/31/22 05:22 05/31/22 05:22 Microbiology Microbiology Results: Microbiology 05/30/22 Unknown Urine Culture - Preliminary Urine clean catch - Urine johnson top Escherichia coli 05/30/22 11:10 Blood Culture - Preliminary Blood - Venous No growth after 24 hours. 05/30/22 10:58 Blood Culture - Preliminary Blood - Venous No growth after 24 hours. Assessment and Plan (1) Urinary tract infection: Status: Acute Plan 76 year old man presenting with acute encephalopathy secondary to urinary tract infection with history of urostomy Acute toxic metabolic encephalopathy secondary to Ecoli UTI hx of similar symptoms in the past, likely some degree of colonization with urostomy however will treat because patient is symptomatic also had an episode of staring, will consult neurology Rocephin follow blood cx neg after 24hrs follow neuro status Possible CAP Rocephin and azithromycin supplemental oxygen as needed robitussin for cough paroxysmal afib no RVR continue BB and AC normocytic anemia no bleeding stable monitor Hypertension with elevated blood pressure readings continue furosemide and metoprolol HLD plavix and statin DVT prophylaxis with heparin Attending Dr. Butterfield Full code DISPO PT eval, discussed with patients , she would like him to go back to rehab continued hospitalization for tx of encephalopathy and UTI Time Spent With Patient Time: Total time managing care of this patient today ____ minutes. Quality Stroke Does the patient have a stroke diagnosis?: No VTE Prior VTE?: No VTE Risk Level:: Medical - moderate - high VTE Device Contraindication: Treatment Not Indicated VTE Drug Contraindication: N/A - Med Ordered
[2022-06-01] MEDS: Azithromycin 500 MG TABLET PO (09:59)
[2022-06-01 11:20] VITALS: PULSE 88; RESP 16; O2SAT 97
[2022-06-01] MEDS: cefTRIAXone sodium 1 GM in 0.9 % Sodium Chloride 50 ML IV (14:10)
[2022-06-01 15:36] VITALS: BP 122/60; PULSE 66; RESP 18; TEMP 36.1; O2SAT 95
[2022-06-01] MEDS: 0.9 % Sodium Chloride 1,000 ML 100 ML IVCONT (15:58)
--- NOTE | 2022-06-01 16:08 | MHC.CM.PN ---
Cm met w/pt's at bedside, pt's reporting she would like to take pt home w/services and preffered vna [facility] already following, pt's reports they have a hospital bed, bedside commode and shower chair although pt is not able to go upstairs currently and hospital bed and commode are set up downstairs. Pt's provided w/list of of Home Health agencies as she reports she will need help bathing pt and someone to stay with pt while she goes out. Per hospitalist pt not yet medically cleared, cm will cont to follow d/c needs.
--- NOTE | 2022-06-01 17:39 | PM.NEUROCN ---
History of Present Illness Data of Consult Service Date: 06/01/22 Primary Care Provider: Armand Del Cid MD [facility] Reason for consult: altered mental status This is a 76 year old man with h/o Afib, HLD, watchman device, urostomy, who [facility] for evaluation of altered mental status.? Patient states that he woke up this morning, shaved, did not eat breakfast and then went back to bed.? He states that the next thing he remembers is waking up and he was being placed an ambulance.? He has been staying at this nursing facility for several weeks prior to that was living at home.? After his AAA repair in 03/13 he had some medical issues that landed him in rehab including hip fracture and recent dx of SIADH at [facility]. He was subsequently sent to rehab from there. He denied chest pain, shortness breath Review of Systems Review of Systems: Follow-up encephalopathy any UTI Looking better today, eating breakfast asking why the police were in the room. thought the RN was a strike warfare/missile systems officer no complaints of pain Yes all other systems are reviewed and are negative [facility] Past Medical History Medical History (Updated 05/30/22 @ 16:08 by Wilma Matos NP) (HFpEF) heart failure with preserved ejection fraction Atrial fibrillation History of SIADH Hyperlipidemia Hypertension Presence of Watchman left atrial appendage closure device Family History Pertinent family history: no cardiac disease Surgical History Surgical History (Updated 05/30/22 @ 16:05 by Wilma Matos NP) History of urostomy S/P ORIF (open reduction internal fixation) fracture Social History Social History Household Members: None Housing: Senior Living Do you presently have visiting nurse or other home services: No Patient Tobacco Use Status: Former Tobacco user Use of substances other than those prescribed or required for medical reasons: No Currently Displaying Signs/Symptoms of Drug Intoxication Withdrawal: No Have you been hit, kicked, punched, or otherwise hurt by someone within the past year? If so, by whom?: No Do you feel safe in your current relationship?: Yes Is there a partner from a previous relationship who is making you feel unsafe now?: No Are you made to feel afraid or neglected: No Advance Directives: Yes Advance Directives Information Provided: No Advance Directives on File: No Advance Directives Date on File: 05/30/22 Do you have thoughts of harming others: None Do you have a plan to hurt others: No Plan Recently lost weight without trying: No Eating poorly because of decreased appetite: No Nutrition Risks: No Nutritional Risk Poor oral hygiene: No service: No Current occupational status: retired [employer] Allergies Allergy/AdvReac Type Severity Reaction Status Date / Time lisinopril Allergy Rash Verified 05/30/22 10:41 Active Medications: Current Medications Acetaminophen (Acetaminophen 325 Mg Tablet) 650 mg PO Q6H PRN PRN Reason: Pain, Mild (Pain Scale 1-3) Albuterol Sulfate (Albuterol Sulfate (0.083%) 2.5 Mg/3 Ml Vial.Neb) 2.5 mg INHALE RQ4H WHILE AWAKE [facility] Last Admin: 06/01/22 16:02 Dose: Not Given Aspirin (Aspirin Enteric Coated 81 Mg Tablet.) 81 mg PO DAILY [facility] Last Admin: 06/01/22 08:39 Dose: 81 mg Atorvastatin Calcium (Atorvastatin Calcium 10 Mg Tablet) 10 mg PO DAILY [facility] Last Admin: 06/01/22 08:39 Dose: 10 mg Azithromycin (Azithromycin 500 Mg Tablet) 500 mg PO Q24H [facility] Last Admin: 06/01/22 09:59 Dose: 500 mg Brimonidine Tartrate (Brimonidine Tartrate 0.2% Oph 5 Ml Bottle) 1 drop EYE-BOTH DAILY [facility] Last Admin: 06/01/22 08:39 Dose: 1 drop Diltiazem HCl (Diltiazem Hcl Cd 120 Mg Cap.Er.Deg) 120 mg PO DAILY [facility]; Protocol Last Admin: 06/01/22 08:39 Dose: 120 mg Docusate Sodium (Docusate Sodium 100 Mg Capsule) 100 mg PO BID [facility] Last Admin: 06/01/22 08:39 Dose: 100 mg Guaifenesin (Guaifenesin 100 Mg/5 Ml Liquid) 5 ml PO Q4H PRN PRN Reason: Cough Last Admin: 05/31/22 20:07 Dose: 5 ml Guaifenesin (Guaifenesin 100 Mg/5 Ml Liquid) 5 ml PO Q4H PRN PRN Reason: Cough Heparin Sodium (Porcine) (Heparin Sodium,Porcine 5,000 Unit/Ml Vial) 5,000 unit SUBCUT Q12H [facility] Last Admin: 06/01/22 15:58 Dose: 5,000 unit Ceftriaxone Sodium 1 gm/ (Sodium Chloride) 50 mls @ 100 mls/hr IV Q24H [facility] Last Infusion: 06/01/22 14:51 Dose: Infused Sodium Chloride (Ns) 1,000 mls @ 100 mls/hr IVCONT .Q10H [facility] Last Admin: 06/01/22 15:58 Dose: 100 mls/hr Magnesium Oxide (Magnesium Oxide 400 Mg Tablet) 400 mg PO BID [facility] Last Admin: 06/01/22 08:39 Dose: 400 mg Metoprolol Succinate (Metoprolol Succinate Er 50 Mg Tab.Er.24h) 150 mg PO DAILY [facility]; Protocol Last Admin: 06/01/22 08:39 Dose: 150 mg Mirtazapine (Mirtazapine 15 Mg Tablet) 15 mg PO BEDTIME [facility] Last Admin: 05/31/22 20:06 Dose: 15 mg Non-Formulary Medication (Demeclocycline) 150 mg PO BID [facility] Ondansetron HCl (Ondansetron Hcl 4 Mg/2 Ml Vial) 4 mg IVPUSH Q8H PRN PRN Reason: Nausea and Vomiting Pharmacy Consult (Consult Rx Perform Med Rec) 1 each MISCELLANE ONCE PRN PRN Reason: Consult order Senna (Sennosides 8.6 Mg Tablet) 8.6 mg PO DAILY [facility] Last Admin: 06/01/22 08:39 Dose: 8.6 mg Sodium Chloride (0.9 % Sodium Chloride Flush 3 Ml Syringe) 3 ml IVFLUSH QSHIFT [facility] Last Admin: 06/01/22 12:31 Dose: Not Given Home Medications Medication Instructions Recorded Confirmed Last Taken Type acetaminophen 325 mg tablet 650 mg PO Q4H PRN Pain 05/30/22 05/30/22 Unknown History albuterol sulfate 90 mcg/actuation 2 puff inhalation Q4-6H PRN 05/30/22 05/30/22 Unknown History aerosol inhaler (ProAir HFA) Wheezing aspirin 81 mg tablet,delayed 81 mg PO DAILY 05/30/22 05/30/22 Unknown History release brimonidine 0.2 % eye drops 1 drp ophthalmic (eye) DAILY 05/30/22 05/30/22 Unknown History demeclocycline 150 mg tablet 150 mg PO BID 05/30/22 05/30/22 Unknown History diltiazem HCl 120 mg 1 cap PO DAILY 05/30/22 05/30/22 Unknown History capsule,extended release 24 hr (Cartia XT) docusate sodium 100 mg capsule 100 mg PO BID 05/30/22 05/30/22 Unknown History (Colace) heparin (porcine) 5,000 unit/mL 5,000 unit subcut Q12H 05/30/22 05/30/22 Unknown History injection solution magnesium oxide 400 mg (241.3 mg 400 mg PO BID 05/30/22 05/30/22 Unknown History magnesium) tablet (MagOx) metoprolol succinate 100 mg 150 mg PO DAILY 05/30/22 05/30/22 Unknown History tablet,extended release 24 hr mirtazapine 15 mg tablet 15 mg PO BEDTIME 05/30/22 05/30/22 Unknown History sennosides 8.6 mg tablet (senna) 8.6 mg PO DAILY 05/30/22 05/30/22 Unknown History simvastatin 10 mg tablet 10 mg PO DAILY 05/30/22 05/30/22 Unknown History Physical Exam Vital Signs: Vital Signs: Last Vital Signs Temp 97 F 06/01/22 15:36 Pulse 66 06/01/22 15:36 Resp 18 06/01/22 15:36 BP 122/60 06/01/22 15:36 Pulse Ox 95 06/01/22 15:36 O2 Del Method 06/01/22 15:36 BMI result Body Mass Index 23.0 Const: Other: Awake, alert, male patient, does not appear to be in distress, does answer questions appropriately, oriented to person and place HEENT: Head: Yes normal to inspection, Yes normocephalic and Yes atraumatic Ears: external ears normal General nose exam: Normal external nose present Face and sinus: Yes normal facial exam Mouth: Normal oral and palatal mucosa present Throat: Yes posterior oropharynx normal Eyes: General: appearance normal, both eyes and all related structures Pupils: Equal, round and reactive pupils present Neck: Neck: Yes normal visual inspection, Yes no lymphadenopathy, Yes trachea midline and Yes supple Chest: Chest palpation & inspection: normal inspection of the chest and normal palpation of entire chest wall Resp: Effort & Inspection: normal respiratory effort and able to speak in complete sentences Auscultation: clear to auscultation bilaterally Cardio: Rate: regular rate Rhythm: regular rhythm Heart sounds: S1 normal heart sound present, S2 normal heart sound present and no murmurs GI: Inspection: Yes other (Right lower quadrant urostomy, clear, yellow urine in the bad) Palpation (GI): Soft to palpation, nontender and no guarding Auscultation: normal bowel sounds : General: Yes no CVA tenderness Back/Spine/Pelvis: Back: no CVA tenderness Skin: General skin exam: no rashes or lesions noted Neuro: Other: awake and oriented. Non focal exam. Peiodically confused. Cranial nerves: Yes CN's II-XII intact bilaterally and Yes Equal, round and reactive pupils present Cognition (Neuro): normal cognition Motor exam (neuro): 5/5 motor strength present throughout Extrem: General: Yes normal to inspection Psych: Appearance: grossly normal Speech and movement: Normal speech and movement present Affect: normal affect Results Labs 05/31/22 05:22 05/31/22 05:22 Microbiology Microbiology Results: Microbiology 05/30/22 11:10 Blood - Venous Blood Culture - Preliminary No growth after 48 hours. 05/30/22 10:58 Blood - Venous Blood Culture - Preliminary No growth after 48 hours. 05/30/22 Unknown Urine clean catch - Urine johnson top Urine Culture - Preliminary Escherichia coli Assessment and Plan (1) Urinary tract infection: Status: Acute Encephalopathy secondary to UTI. Improving . CT brain negative. Recom. Hydration. Treat UTI Plan 76 year old man presenting with acute encephalopathy secondary to urinary tract infection with history of urostomy Acute toxic metabolic encephalopathy secondary to Ecoli UTI hx of similar symptoms in the past, likely some degree of colonization with urostomy however will treat because patient is symptomatic also had an episode of staring, will consult neurology Rocephin follow blood cx neg after 24hrs follow neuro status Possible CAP Rocephin and azithromycin supplemental oxygen as needed robitussin for cough paroxysmal afib no RVR continue BB and AC normocytic anemia no bleeding stable monitor Hypertension with elevated blood pressure readings continue furosemide and metoprolol HLD plavix and statin DVT prophylaxis with heparin Attending Dr. uBtterfield Full code DISPO PT meryl, discussed with patients , she would like him to go back to rehab continued hospitalization for tx of encephalopathy and UTI Time Spent With Patient Time: Total time managing care of this patient today ____ minutes. Procedures Date of Service Date of Service: 06/01/22
[2022-06-01 19:42] VITALS: BP 107/65; PULSE 88; RESP 16; TEMP 37.7; O2SAT 94
[2022-06-01] MEDS: Mirtazapine 15 MG TABLET PO (20:23)
[2022-06-02] MEDS: 0.9 % Sodium Chloride 1,000 ML 100 ML IVCONT ×3 (00:39→21:15)
[2022-06-02 03:14] VITALS: BP 143/83; PULSE 97; RESP 16; TEMP 36.9; O2SAT 94
[2022-06-02] MEDS: Heparin Sodium,Porcine 5,000 UNIT/ML VIAL 5000 UNIT SUBCUT ×2 (05:30→17:57)
[2022-06-02 06:51] LABS: Anion Gap 13 (12-20); Blood Urea Nitrogen 20 mg/dL (9-16); Calcium 9.5 mg/dL (8.4-10.2); Carbon Dioxide 23 mmol/L (22-29); Chloride 102 mmol/L (96-108); Estimated Glomerular Filt Rate > 60; Glucose Random 97 mg/dL (60-115); Potassium 4.1 mmol/L (3.3-5.1); Sodium 134 mmol/L (135-145)
[2022-06-02 07:54] VITALS: BP 141/79; PULSE 91; RESP 18; TEMP 37.2; O2SAT 95
[2022-06-02] MEDS: Albuterol Sulfate (0.083%) 2.5 MG/3 ML VIAL.NEB INHALE ×3 (08:41→16:08)
[2022-06-02] MEDS: Aspirin Enteric Coated 81 MG TABLET.DR PO (09:58)
[2022-06-02] MEDS: dilTIAZem HCL CD 120 MG CAP.ER.DEG PO (09:58)
[2022-06-02] MEDS: Azithromycin 500 MG TABLET PO (09:58)
[2022-06-02] MEDS: Atorvastatin Calcium 10 MG TABLET PO (09:59)
[2022-06-02] MEDS: Docusate Sodium 100 MG CAPSULE PO (09:59)
[2022-06-02] MEDS: Metoprolol Succinate ER 50 MG TAB.ER.24H 150 MG PO (09:59)
[2022-06-02] MEDS: Magnesium Oxide 400 MG TABLET PO (09:59)
[2022-06-02] MEDS: Sennosides 8.6 MG TABLET PO (09:59)
[2022-06-02] MEDS: 0.9 % Sodium Chloride Flush 3 ML SYRINGE IVFLUSH (09:59)
[2022-06-02] MEDS: Brimonidine Tartrate 0.2% Oph 5 ML BOTTLE 1 DROP EYE-BOTH (11:03)
--- NOTE | 2022-06-02 11:12 | P.PNIM_ITS ---
Subjective Subjective Date of Service: 06/02/22 Review of Systems Follow-up encephalopathy any UTI Looking better today no complaints of pain Physical Exam Vital Signs: Vital Signs: Last Vital Signs Temp 99.0 F 06/02/22 07:54 Pulse 91 06/02/22 07:54 Resp 18 06/02/22 07:54 BP 141/79 H 06/02/22 07:54 Pulse Ox 95 06/02/22 07:54 O2 Del Method 06/02/22 07:54 BMI result Body Mass Index 23.0 Appearing in no acute distress lung sounds are clear to auscultation heart regular rate rhythm, clear S1, S2 positive bowel sounds, abdomen is soft, nontender neuro patient is alert x3, no focal deficits Objective Data Active Medications Acetaminophen (Acetaminophen 325 Mg Tablet) 650 mg PO Q6H PRN PRN Reason: Pain, Mild (Pain Scale 1-3) Albuterol Sulfate (Albuterol Sulfate (0.083%) 2.5 Mg/3 Ml Vial.Neb) 2.5 mg INHALE RQ4H WHILE AWAKE [facility] Last Admin: 06/02/22 08:41 Dose: 2.5 mg Documented By: ENDY Aspirin (Aspirin Enteric Coated 81 Mg Tablet.) 81 mg PO DAILY [facility] Last Admin: 06/02/22 09:58 Dose: 81 mg Documented By: ARTUR Atorvastatin Calcium (Atorvastatin Calcium 10 Mg Tablet) 10 mg PO DAILY [facility] Last Admin: 06/02/22 09:59 Dose: 10 mg Documented By: ARTUR Azithromycin (Azithromycin 500 Mg Tablet) 500 mg PO Q24H [facility] Last Admin: 06/02/22 09:58 Dose: 500 mg Documented By: ARTUR Brimonidine Tartrate (Brimonidine Tartrate 0.2% Oph 5 Ml Bottle) 1 drop EYE- BOTH DAILY [facility] Last Admin: 06/02/22 11:03 Dose: 1 drop Documented By: ARTUR Diltiazem HCl (Diltiazem Hcl Cd 120 Mg Cap.Er.Deg) 120 mg PO DAILY [facility]; Protocol Last Admin: 06/02/22 09:58 Dose: 120 mg Documented By: ARTUR Docusate Sodium (Docusate Sodium 100 Mg Capsule) 100 mg PO BID [facility] Last Admin: 06/02/22 09:59 Dose: 100 mg Documented By: ARTUR Guaifenesin (Guaifenesin 100 Mg/5 Ml Liquid) 5 ml PO Q4H PRN PRN Reason: Cough Last Admin: 05/31/22 20:07 Dose: 5 ml Documented By: JENNIFER Guaifenesin (Guaifenesin 100 Mg/5 Ml Liquid) 5 ml PO Q4H PRN PRN Reason: Cough Heparin Sodium (Porcine) (Heparin Sodium,Porcine 5,000 Unit/Ml Vial) 5,000 unit SUBCUT Q12H [facility] Last Admin: 06/02/22 05:30 Dose: 5,000 unit Documented By: CARISSA Ceftriaxone Sodium 1 gm/ (Sodium Chloride) 50 mls @ 100 mls/hr IV Q24H [facility] Last Infusion: 06/01/22 14:51 Dose: 0 mls/hr Documented By: KANG Sodium Chloride (Ns) 1,000 mls @ 100 mls/hr IVCONT .Q10H [facility] Last Admin: 06/02/22 11:03 Dose: 100 mls/hr Documented By: ARTUR Magnesium Oxide (Magnesium Oxide 400 Mg Tablet) 400 mg PO BID [facility] Last Admin: 06/02/22 09:59 Dose: 400 mg Documented By: ARTUR Metoprolol Succinate (Metoprolol Succinate Er 50 Mg Tab.Er.24h) 150 mg PO DAILY [facility]; Protocol Last Admin: 06/02/22 09:59 Dose: 150 mg Documented By: ARTUR Mirtazapine (Mirtazapine 15 Mg Tablet) 15 mg PO BEDTIME [facility] Last Admin: 06/01/22 20:23 Dose: 15 mg Documented By: CARISSA Non-Formulary Medication (Demeclocycline) 150 mg PO BID [facility] Ondansetron HCl (Ondansetron Hcl 4 Mg/2 Ml Vial) 4 mg IVPUSH Q8H PRN PRN Reason: Nausea and Vomiting Pharmacy Consult (Consult Rx Perform Med Rec) 1 each MISCELLANE ONCE PRN PRN Reason: Consult order Senna (Sennosides 8.6 Mg Tablet) 8.6 mg PO DAILY [facility] Last Admin: 06/02/22 09:59 Dose: 8.6 mg Documented By: ARTUR Sodium Chloride (0.9 % Sodium Chloride Flush 3 Ml Syringe) 3 ml IVFLUSH QSHIFT [facility] Last Admin: 06/02/22 09:59 Dose: 3 ml Documented By: ARTUR Labs 05/31/22 05:22 06/02/22 05:48 Labs: Laboratory Results - last 24 hr 06/02/22 05:48 Anion Gap 13 Estim Creat Clear Calc 71.0 Estimated GFR > 60 Random Glucose 97 Calcium 9.5 D Microbiology Microbiology Results: Microbiology 05/30/22 Unknown Urine Culture - Final Urine clean catch - Urine johnson top Escherichia coli 05/30/22 11:10 Blood Culture - Preliminary Blood - Venous No growth after 48 hours. 05/30/22 10:58 Blood Culture - Preliminary Blood - Venous No growth after 48 hours. Assessment and Plan (1) Urinary tract infection: Status: Acute Plan 76 year old man presenting with acute encephalopathy secondary to urinary tract infection with history of urostomy Acute toxic metabolic encephalopathy secondary to Ecoli UTI hx of similar symptoms in the past, likely some degree of colonization with urostomy however will treat because patient is symptomatic also had an episode of staring, will consult neurology Rocephin started 05/31/22 follow blood cx neg after 48hrs follow neuro status Possible CAP Rocephin and azithromycin supplemental oxygen as needed robitussin for cough paroxysmal afib no RVR continue BB and AC normocytic anemia no bleeding stable monitor Hypertension with elevated blood pressure readings continue furosemide and metoprolol HLD plavix and statin DVT prophylaxis with heparin Attending Dr. Butterfield Full code DISPO Plan for dc home, likely tomorrow continued hospitalization for tx of encephalopathy and UTI Time Spent With Patient Time: Total time managing care of this patient today ____ minutes. Quality Stroke Does the patient have a stroke diagnosis?: No VTE Prior VTE?: No VTE Risk Level:: Medical - moderate - high VTE Device Contraindication: Treatment Not Indicated VTE Drug Contraindication: N/A - Med Ordered
[2022-06-02 12:10] VITALS: PULSE 89; RESP 18; O2SAT 97
--- NOTE | 2022-06-02 14:01 | MHC.CLN ---
NUTRITION CONSULT FOR POOR NUTRITION. REVIEW OF DOCUMENTATION SHOWS VARIABLE PO INTAKE, 25-100%. PROVIDER ADDED ENSURE TID (1050 KCALS, 60 G PROTEIN). CURRENT DIET=REGULAR-APPROPRIATE. AGREE WITH SUPPLEMENT TO PROVIDE ADDITIONAL NUTRITION.
[2022-06-02] MEDS: cefTRIAXone sodium 1 GM in 0.9 % Sodium Chloride 50 ML IV (14:34)
[2022-06-02 14:54] VITALS: BP 111/58; PULSE 77; RESP 18; TEMP 36.7; O2SAT 97
--- NOTE | 2022-06-02 15:03 | MHC.CM.PN ---
Addendum entered by Casi Canela RN 06/02/22 15:43: PT CONTACTED PT'S STIVEN AT 1557PM, IMM DELIVERED AND COPY WILL BE LEFT AT BEDSIDE PER DISCUSSION, SANDER SALEEM WILL APPEAL W/[employer]ARE IN AM. Original Note: PER HOSPITALIST SANDER PT WILL BE CLEARED FOR D/C TOMORROW, CM SPOKE BRIEFLY WITH PT AND RN WHO REPORT THEY ARE CONCERNED ABOUT PT'S TAKING HIM HOME AND THEY DON'T FEEL SHE WILL BE ABLE TO MANAGE HIM. CM CONTACTED PT'S STIVEN AT 2:35PM [phone] TO DISCUSS DISPO, STIVEN REPORTS SHE DOES NOT WANT TO SEND PT BACK TO [facility] OR SNF'S SHE HAD PREVIOUSLY MENTIONED WHEN CM MET W/HER ON WEDNESDAY 05/31, STIVEN CONT'S TO REPORT THAT SHE WOULD LIKE TO TAKE PT HOME HOWEVER SHE WOULD LIKE HIM TO BE EATING BETTER, HIS SODIUM TO BE OKAY...STIVEN AWARE IF SHE IS NOT AGREEABLE TO D/C TOMORROW WHEN WE ANTIC SHE WILL NEED TO APPEAL W/[employer] MEDICARE AND NUMBER HAS BEEN LEFT AT BEDSIDE. PER [facility] THEY ARE UNABLE TO DO A SOC UNTIL 06/08/22.
[2022-06-02 16:15] VITALS: PULSE 77; RESP 18; O2SAT 97
[2022-06-02 16:48] VITALS: BMI 19.4
[2022-06-02 19:25] VITALS: BP 107/60; PULSE 77; RESP 18; TEMP 37.1; O2SAT 95
[2022-06-03] VITALS (9 sets, daily range): BP systolic 117–142; BP diastolic 57–82; PULSE 71–100; RESP 16–20; TEMP 36.2–36.6; O2SAT 93–100
[2022-06-03] MEDS: Heparin Sodium,Porcine 5,000 UNIT/ML VIAL 5000 UNIT SUBCUT ×2 (05:35→17:48)
[2022-06-03] MEDS: 0.9 % Sodium Chloride 1,000 ML 100 ML IVCONT ×2 (06:27→15:32)
[2022-06-03] MEDS: Albuterol Sulfate (0.083%) 2.5 MG/3 ML VIAL.NEB INHALE ×4 (07:52→20:36)
[2022-06-03] MEDS: Atorvastatin Calcium 10 MG TABLET PO (08:34)
[2022-06-03] MEDS: dilTIAZem HCL CD 120 MG CAP.ER.DEG PO (08:34)
[2022-06-03] MEDS: Metoprolol Succinate ER 50 MG TAB.ER.24H 150 MG PO (08:34)
[2022-06-03] MEDS: Aspirin Enteric Coated 81 MG TABLET.DR PO (08:34)
[2022-06-03] MEDS: Magnesium Oxide 400 MG TABLET PO ×2 (08:34→20:16)
[2022-06-03] MEDS: Sennosides 8.6 MG TABLET PO (08:34)
[2022-06-03] MEDS: Docusate Sodium 100 MG CAPSULE PO (08:34)
[2022-06-03] MEDS: Brimonidine Tartrate 0.2% Oph 5 ML BOTTLE 1 DROP EYE-BOTH (08:35)
[2022-06-03 08:57] LABS: Anion Gap 10 (12-20); Blood Urea Nitrogen 17 mg/dL (9-16); Calcium 9.5 mg/dL (8.4-10.2); Carbon Dioxide 23 mmol/L (22-29); Chloride 106 mmol/L (96-108); Creatinine Clr Calc Pharmacy 67.8; Estimated Glomerular Filt Rate > 60; Glucose Random 91 mg/dL (60-115); Sodium 135 mmol/L (135-145)
[2022-06-03] MEDS: Azithromycin 500 MG TABLET PO (11:11)
--- NOTE | 2022-06-03 14:57 | MHC.CM.PN ---
PTS SUBMITTED AN APPEAL OF DC THIS MORNING HOWEVER PT IS NOT MEDICALLY CLEARED AT THIS TIME [employer] INFORMED PT WILL NOT BE DISCHARGED AT THIS TIME INFORMED OF CANCELLATION AND THAT IF SHE STILL FEELS IT NECESSARY, SHE CAN APPEAL WHEN PT IS MEDICALLY CLEARED
--- NOTE | 2022-06-03 16:54 | HO.PM.IMPN ---
Subjective Subjective Date of Service: 06/03/22 Interval History: seen and examined this morning Follow-up for UTI, encephalopathy Awake, alert still appears somewhat confused denies any abdominal pain, nausea, vomiting Review of Systems Review of Systems: Yes all other systems are reviewed and are negative Constitutional Constitutional: Denies chills and Denies fever(s) Cardiovascular Cardiovascular: Denies chest pain, Denies palpitations and Denies dyspnea Respiratory Respiratory: Denies cough and Denies dyspnea Gastrointestinal Gastrointestinal: Denies abdominal pain, Denies nausea and Denies vomiting Endocrine Endocrine: Denies palpitations Physical Exam Vital Signs: Vital Signs: Last Vital Signs Temp 97.6 F 06/03/22 07:58 Pulse 78 06/03/22 15:49 Resp 18 06/03/22 15:49 BP 117/57 L 06/03/22 07:58 Pulse Ox 100 06/03/22 07:58 O2 Del Method 06/03/22 07:58 O2 Flow Rate 6 06/03/22 07:58 BMI result Body Mass Index 19.4 Const: General: alert and awake Nutritional Appearance: thin Orientation/consciousness: oriented to person and oriented to place Resp: Effort & Inspection: normal respiratory effort and able to speak in complete sentences Cardio: Rate: regular rate Heart sounds: S1 normal heart sound present and S2 normal heart sound present GI: Inspection: No distended Palpation (GI): Soft to palpation and nontender : Other: urostomy present draining clear urine Neuro: Other: grossly nonfocal; moving all extremities General: oriented to person and oriented to place Extrem: General: Yes no pedal edema Objective Data Active Medications Acetaminophen (Acetaminophen 325 Mg Tablet) 650 mg PO Q6H PRN PRN Reason: Pain, Mild (Pain Scale 1-3) Albuterol Sulfate (Albuterol Sulfate (0.083%) 2.5 Mg/3 Ml Vial.Neb) 2.5 mg INHALE RQ4H WHILE AWAKE [facility] Last Admin: 06/03/22 15:49 Dose: 2.5 mg Documented By: SAPNA Aspirin (Aspirin Enteric Coated 81 Mg Tablet.) 81 mg PO DAILY [facility] Last Admin: 06/03/22 08:34 Dose: 81 mg Documented By: ARTUR Atorvastatin Calcium (Atorvastatin Calcium 10 Mg Tablet) 10 mg PO DAILY [facility] Last Admin: 06/03/22 08:34 Dose: 10 mg Documented By: ARTUR Azithromycin (Azithromycin 500 Mg Tablet) 500 mg PO Q24H [facility] Last Admin: 06/03/22 11:11 Dose: 500 mg Documented By: ARTUR Brimonidine Tartrate (Brimonidine Tartrate 0.2% Oph 5 Ml Bottle) 1 drop EYE-BOTH DAILY [facility] Last Admin: 06/03/22 08:35 Dose: 1 drop Documented By: ARTUR Diltiazem HCl (Diltiazem Hcl Cd 120 Mg Cap.Er.Deg) 120 mg PO DAILY [facility]; Protocol Last Admin: 06/03/22 08:34 Dose: 120 mg Documented By: ARTUR Docusate Sodium (Docusate Sodium 100 Mg Capsule) 100 mg PO BID [facility] Last Admin: 06/03/22 08:34 Dose: 100 mg Documented By: ARTUR Guaifenesin (Guaifenesin 100 Mg/5 Ml Liquid) 5 ml PO Q4H PRN PRN Reason: Cough Last Admin: 05/31/22 20:07 Dose: 5 ml Documented By: MARLEYFA Guaifenesin (Guaifenesin 100 Mg/5 Ml Liquid) 5 ml PO Q4H PRN PRN Reason: Cough Heparin Sodium (Porcine) (Heparin Sodium,Porcine 5,000 Unit/Ml Vial) 5,000 unit SUBCUT Q12H [facility] Last Admin: 06/03/22 05:35 Dose: 5,000 unit Documented By: CHRISTA Sodium Chloride (Ns) 1,000 mls @ 100 mls/hr IVCONT .Q10H [facility] Last Admin: 06/03/22 15:32 Dose: 100 mls/hr Documented By: ARTUR Meropenem 1 gm/ Sodium (Chloride) 100 mls @ 200 mls/hr IV Q8H [facility] Last Infusion: 06/03/22 16:05 Dose: 0 mls/hr Documented By: ARTUR Magnesium Oxide (Magnesium Oxide 400 Mg Tablet) 400 mg PO BID [facility] Last Admin: 06/03/22 08:34 Dose: 400 mg Documented By: ARTUR Metoprolol Succinate (Metoprolol Succinate Er 50 Mg Tab.Er.24h) 150 mg PO DAILY [facility]; Protocol Last Admin: 06/03/22 08:34 Dose: 150 mg Documented By: ARTUR Mirtazapine (Mirtazapine 15 Mg Tablet) 15 mg PO BEDTIME [facility] Last Admin: 06/02/22 21:03 Dose: Not Given Documented By: ODRISSon Non-Admin Reason: pt too sleepy Non-Formulary Medication (Demeclocycline) 150 mg PO BID [facility] Ondansetron HCl (Ondansetron Hcl 4 Mg/2 Ml Vial) 4 mg IVPUSH Q8H PRN PRN Reason: Nausea and Vomiting Pharmacy Consult (Consult Rx Perform Med Rec) 1 each MISCELLANE ONCE PRN PRN Reason: Consult order Senna (Sennosides 8.6 Mg Tablet) 8.6 mg PO DAILY [facility] Last Admin: 06/03/22 08:34 Dose: 8.6 mg Documented By: ARTUR Sodium Chloride (0.9 % Sodium Chloride Flush 3 Ml Syringe) 3 ml IVFLUSH QSHIFT [facility] Last Admin: 06/03/22 15:26 Dose: Not Given Documented By: ARTUR Non-Admin Reason: IV Running Labs 05/31/22 05:22 06/03/22 08:07 Labs: Laboratory Results - last 24 hr 06/03/22 08:07 Anion Gap 10 L Estim Creat Clear Calc 67.8 Estimated GFR > 60 Random Glucose 91 Calcium 9.5 Assessment and Plan (1) Urinary tract infection: Status: Acute Plan 76 year old man presenting with acute encephalopathy secondary to urinary tract infection with history of urostomy Acute toxic metabolic encephalopathy secondary to Ecoli UTI hx of similar symptoms in the past, likely some degree of colonization with urostomy however will treat because patient is symptomatic had an episode of staring, seen by neurology -rec to treat UTI Rocephin started 05/31/22. urine culture growing ESBL positive E coli, transition to meropenem ID consult placed follow blood cx neg after 48hrs seems to be more alert and interactive today Possible CAP Rocephin and azithromycin supplemental oxygen as needed robitussin for cough paroxysmal afib heart rate controlled continue diltiazem, metoprolol history of watchman device, not on anticoagulation normocytic anemia no bleeding stable monitor Hypertension BP controlled continue furosemide, metoprolol, Cardizem HLD continue statin DVT prophylaxis with heparin Attending Dr. Butterfield Full code DISPO seen by Physical therapy, recommend short-term rehab. Long discussion with the , she prefers to take him home with home services continued hospitalization for tx of encephalopathy and UTI Time Spent With Patient Time: Total time managing care of this patient today ____ minutes. Quality Stroke Does the patient have a stroke diagnosis?: No VTE Prior VTE?: No VTE Risk Level:: Medical - moderate - high VTE Device Contraindication: Treatment Not Indicated VTE Drug Contraindication: N/A - Med Ordered
[2022-06-03 18:25] LABS: TSH reflex Free T4 3.72 uIU/mL (0.32-4.0)
[2022-06-03 18:41] LABS: Folate 5.6 ng/mL (> or = 4.0); Vitamin B12 596 pg/mL (200-900)
[2022-06-03] MEDS: Mirtazapine 15 MG TABLET PO (20:12)
[2022-06-04] VITALS (10 sets, daily range): BP systolic 113–146; BP diastolic 58–80; PULSE 77–118; RESP 16–20; TEMP 36.5–36.8; O2SAT 92–96
[2022-06-04] MEDS: 0.9 % Sodium Chloride 1,000 ML 100 ML IVCONT (04:30)
[2022-06-04] MEDS: Heparin Sodium,Porcine 5,000 UNIT/ML VIAL 5000 UNIT SUBCUT ×2 (05:57→18:21)
[2022-06-04] MEDS: dilTIAZem HCL CD 120 MG CAP.ER.DEG PO (08:26)
[2022-06-04] MEDS: Atorvastatin Calcium 10 MG TABLET PO (08:27)
[2022-06-04] MEDS: Metoprolol Succinate ER 50 MG TAB.ER.24H 150 MG PO (08:27)
[2022-06-04] MEDS: Brimonidine Tartrate 0.2% Oph 5 ML BOTTLE 1 DROP EYE-BOTH (08:27)
[2022-06-04] MEDS: Aspirin Enteric Coated 81 MG TABLET.DR PO (08:27)
[2022-06-04] MEDS: Magnesium Oxide 400 MG TABLET PO ×2 (08:28→21:55)
[2022-06-04] MEDS: 0.9 % Sodium Chloride Flush 3 ML SYRINGE IVFLUSH ×2 (08:43→18:24)
[2022-06-04] MEDS: Albuterol Sulfate (0.083%) 2.5 MG/3 ML VIAL.NEB INHALE ×4 (09:01→20:23)
[2022-06-04] MEDS: Azithromycin 500 MG TABLET PO (10:33)
--- NOTE | 2022-06-04 12:39 | HO.PM.IMPN ---
Subjective Subjective Date of Service: 06/04/22 Interval History: seen and examined this morning follow up for UTI, encephalopathy no overnight events no abdominal pain, nausea or vomiting Review of Systems Review of Systems: Yes all other systems are reviewed and are negative Constitutional Constitutional: Denies chills and Denies fever(s) Cardiovascular Cardiovascular: Denies chest pain, Denies palpitations and Denies dyspnea Respiratory Respiratory: Denies cough and Denies dyspnea Gastrointestinal Gastrointestinal: Denies abdominal pain, Denies nausea and Denies vomiting Endocrine Endocrine: Denies palpitations Physical Exam Vital Signs: Vital Signs: Last Vital Signs Temp 98 F 06/04/22 08:00 Pulse 82 06/04/22 12:04 Resp 16 06/04/22 12:04 BP 137/79 06/04/22 06:54 Pulse Ox 95 06/04/22 06:54 O2 Del Method 06/04/22 06:54 O2 Flow Rate 6 06/03/22 07:58 BMI result Body Mass Index 19.4 Const: Other: hard of hearing General: alert and awake Nutritional Appearance: thin Orientation/consciousness: patient oriented x3 Resp: Effort & Inspection: normal respiratory effort and able to speak in complete sentences Cardio: Rate: regular rate Heart sounds: S1 normal heart sound present and S2 normal heart sound present GI: Inspection: No distended Palpation (GI): Soft to palpation and nontender : Other: urostomy present draining clear urine Neuro: Other: grossly nonfocal; moving all extremities General: patient oriented x3 Extrem: Other: chronic venous stasis changes b/l lower extremities General: Yes no pedal edema Objective Data Active Medications Acetaminophen (Acetaminophen 325 Mg Tablet) 650 mg PO Q6H PRN PRN Reason: Pain, Mild (Pain Scale 1-3) Albuterol Sulfate (Albuterol Sulfate (0.083%) 2.5 Mg/3 Ml Vial.Neb) 2.5 mg INHALE RQ4H WHILE AWAKE [facility] Last Admin: 06/04/22 11:55 Dose: 2.5 mg Documented By: SAPNA Aspirin (Aspirin Enteric Coated 81 Mg Tablet.) 81 mg PO DAILY [facility] Last Admin: 06/04/22 08:27 Dose: 81 mg Documented By: JANNETTE Atorvastatin Calcium (Atorvastatin Calcium 10 Mg Tablet) 10 mg PO DAILY [facility] Last Admin: 06/04/22 08:27 Dose: 10 mg Documented By: JANNETTE Azithromycin (Azithromycin 500 Mg Tablet) 500 mg PO Q24H [facility] Last Admin: 06/04/22 10:33 Dose: 500 mg Documented By: JANNETTE Brimonidine Tartrate (Brimonidine Tartrate 0.2% Oph 5 Ml Bottle) 1 drop EYE-BOTH DAILY [facility] Last Admin: 06/04/22 08:27 Dose: 1 drop Documented By: JANNETTE Diltiazem HCl (Diltiazem Hcl Cd 120 Mg Cap.Er.Deg) 120 mg PO DAILY [facility]; Protocol Last Admin: 06/04/22 08:26 Dose: 120 mg Documented By: JANNETTE Docusate Sodium (Docusate Sodium 100 Mg Capsule) 100 mg PO BID [facility] Last Admin: 06/04/22 08:28 Dose: Not Given Documented By: JANNETTE Non-Admin Reason: diarrhea Guaifenesin (Guaifenesin 100 Mg/5 Ml Liquid) 5 ml PO Q4H PRN PRN Reason: Cough Last Admin: 05/31/22 20:07 Dose: 5 ml Documented By: JENNIFER Guaifenesin (Guaifenesin 100 Mg/5 Ml Liquid) 5 ml PO Q4H PRN PRN Reason: Cough Heparin Sodium (Porcine) (Heparin Sodium,Porcine 5,000 Unit/Ml Vial) 5,000 unit SUBCUT Q12H [facility] Last Admin: 06/04/22 05:57 Dose: 5,000 unit Documented By: CHRISTA Meropenem 1 gm/ Sodium (Chloride) 100 mls @ 200 mls/hr IV Q8H [facility] Last Infusion: 06/04/22 09:05 Dose: 0 mls/hr Documented By: YUNIER-JEREMYZEB Magnesium Oxide (Magnesium Oxide 400 Mg Tablet) 400 mg PO BID [facility] Last Admin: 06/04/22 08:28 Dose: 400 mg Documented By: JANNETTE Metoprolol Succinate (Metoprolol Succinate Er 50 Mg Tab.Er.24h) 150 mg PO DAILY [facility]; Protocol Last Admin: 06/04/22 08:27 Dose: 150 mg Documented By: JANNETTE Mirtazapine (Mirtazapine 15 Mg Tablet) 15 mg PO BEDTIME [facility] Last Admin: 06/03/22 20:12 Dose: 15 mg Documented By: HO.ODRISM Non-Formulary Medication (Demeclocycline) 150 mg PO BID [facility] Ondansetron HCl (Ondansetron Hcl 4 Mg/2 Ml Vial) 4 mg IVPUSH Q8H PRN PRN Reason: Nausea and Vomiting Pharmacy Consult (Consult Rx Perform Med Rec) 1 each MISCELLANE ONCE PRN PRN Reason: Consult order Senna (Sennosides 8.6 Mg Tablet) 8.6 mg PO DAILY [facility] Last Admin: 06/04/22 08:29 Dose: Not Given Documented By: JANNETTE Non-Admin Reason: diarrhea Sodium Chloride (0.9 % Sodium Chloride Flush 3 Ml Syringe) 3 ml IVFLUSH QSHIFT [facility] Last Admin: 06/04/22 08:43 Dose: 3 ml Documented By: JANNETTE Labs 05/31/22 05:22 06/03/22 08:07 Labs: Laboratory Results - last 24 hr 06/03/22 06/03/22 08:07 08:07 Vitamin B12 596 Folate 5.6 TSH 3.72 Assessment and Plan (1) Acute alteration in mental status: Status: Acute (2) Urinary tract infection: Status: Acute Plan 76 year old man presenting with acute encephalopathy secondary to urinary tract infection with history of urostomy Acute toxic metabolic encephalopathy secondary to Ecoli UTI hx of similar symptoms in the past, likely some degree of colonization with urostomy however will treat because patient is symptomatic had an episode of staring, seen by neurology -rec to treat UTI. of note brain ct does show diffuse volume loss and chronic microangiopathic ischemic changes Rocephin started 05/31/22. 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 Butterfield Full code DISPO seen by Physical therapy, recommend short-term rehab. Long discussion with the , she prefers to take him home with home services if possible continued hospitalization for tx of encephalopathy and UTI Time Spent With Patient Time: Total time managing care of this patient today ____ minutes. Quality Stroke Does the patient have a stroke diagnosis?: No VTE Prior VTE?: No VTE Risk Level:: Medical - moderate - high VTE Device Contraindication: Treatment Not Indicated VTE Drug Contraindication: N/A - Med Ordered
--- NOTE | 2022-06-04 15:15 | P.CNID_ITS ---
History of Present Illness Data of Consult Service Date: 06/04/22 Requesting physician: Ely Mariscal Primary Care Provider: Armand Del Cid MD [facility] Reason for consult: encephalopathy He comes in with weakness and fatigue for a day. He has no rigors He has had UTIs diagnosed but is not able to give good history. Review of Systems Review of Systems: Yes all other systems are reviewed and are negative [facility] Past Medical History Medical History (HFpEF) heart failure with preserved ejection fraction Atrial fibrillation History of SIADH Hyperlipidemia Hypertension Presence of Watchman left atrial appendage closure device Functional capacity: independent ambulation Surgical History Surgical History History of urostomy S/P ORIF (open reduction internal fixation) fracture Social History Social History Household Members: None Housing: [facility] Do you presently have visiting nurse or other home services: No Patient Tobacco Use Status: Former Tobacco user Use of substances other than those prescribed or required for medical reasons: No Currently Displaying Signs/Symptoms of Drug Intoxication Withdrawal: No Have you been hit, kicked, punched, or otherwise hurt by someone within the past year? If so, by whom?: No Do you feel safe in your current relationship?: Yes Is there a partner from a previous relationship who is making you feel unsafe now?: No Are you made to feel afraid or neglected: No Advance Directives: Yes Advance Directives Information Provided: No Advance Directives on File: No Advance Directives Date on File: 05/30/22 Do you have thoughts of harming others: None Do you have a plan to hurt others: No Plan Recently lost weight without trying: No Eating poorly because of decreased appetite: No Nutrition Risks: No Nutritional Risk Poor oral hygiene: No service: No Current occupational status: retired Meds Allergies Allergy/AdvReac Type Severity Reaction Status Date / Time lisinopril Allergy Rash Verified 05/30/22 10:41 Active Medications: Current Medications Acetaminophen (Acetaminophen 325 Mg Tablet) 650 mg PO Q6H PRN PRN Reason: Pain, Mild (Pain Scale 1-3) Albuterol Sulfate (Albuterol Sulfate (0.083%) 2.5 Mg/3 Ml Vial.Neb) 2.5 mg INHALE RQ4H WHILE AWAKE [facility] Last Admin: 06/04/22 11:55 Dose: 2.5 mg Aspirin (Aspirin Enteric Coated 81 Mg Tablet.Dr) 81 mg PO DAILY [facility] Last Admin: 06/04/22 08:27 Dose: 81 mg Atorvastatin Calcium (Atorvastatin Calcium 10 Mg Tablet) 10 mg PO DAILY [facility] Last Admin: 06/04/22 08:27 Dose: 10 mg Brimonidine Tartrate (Brimonidine Tartrate 0.2% Oph 5 Ml Bottle) 1 drop EYE- BOTH DAILY [facility] Last Admin: 06/04/22 08:27 Dose: 1 drop Diltiazem HCl (Diltiazem Hcl Cd 120 Mg Cap.Er.Deg) 120 mg PO DAILY [facility]; Protocol Last Admin: 06/04/22 08:26 Dose: 120 mg Docusate Sodium (Docusate Sodium 100 Mg Capsule) 100 mg PO BID [facility] Last Admin: 06/04/22 08:28 Dose: Not Given Guaifenesin (Guaifenesin 100 Mg/5 Ml Liquid) 5 ml PO Q4H PRN PRN Reason: Cough Last Admin: 05/31/22 20:07 Dose: 5 ml Guaifenesin (Guaifenesin 100 Mg/5 Ml Liquid) 5 ml PO Q4H PRN PRN Reason: Cough Heparin Sodium (Porcine) (Heparin Sodium,Porcine 5,000 Unit/Ml Vial) 5,000 unit SUBCUT Q12H [facility] Last Admin: 06/04/22 05:57 Dose: 5,000 unit Meropenem 1 gm/ Sodium (Chloride) 100 mls @ 200 mls/hr IV Q8H [facility] Last Infusion: 06/04/22 09:05 Dose: Infused Magnesium Oxide (Magnesium Oxide 400 Mg Tablet) 400 mg PO BID [facility] Last Admin: 06/04/22 08:28 Dose: 400 mg Metoprolol Succinate (Metoprolol Succinate Er 50 Mg Tab.Er.24h) 150 mg PO DAILY [facility]; Protocol Last Admin: 06/04/22 08:27 Dose: 150 mg Mirtazapine (Mirtazapine 15 Mg Tablet) 15 mg PO BEDTIME [facility] Last Admin: 06/03/22 20:12 Dose: 15 mg Non-Formulary Medication (Demeclocycline) 150 mg PO BID [facility] Ondansetron HCl (Ondansetron Hcl 4 Mg/2 Ml Vial) 4 mg IVPUSH Q8H PRN PRN Reason: Nausea and Vomiting Pharmacy Consult (Consult Rx Perform Med Rec) 1 each MISCELLANE ONCE PRN PRN Reason: Consult order Senna (Sennosides 8.6 Mg Tablet) 8.6 mg PO DAILY [facility] Last Admin: 06/04/22 08:29 Dose: Not Given Sodium Chloride (0.9 % Sodium Chloride Flush 3 Ml Syringe) 3 ml IVFLUSH QSHIFT [facility] Last Admin: 06/04/22 08:43 Dose: 3 ml Home Medications Medication Instructions Recorded Confirmed Last Taken Type acetaminophen 325 mg tablet 650 mg PO Q4H PRN Pain 05/30/22 05/30/22 Unknown History albuterol sulfate 90 mcg/actuation 2 puff inhalation Q4-6H PRN 05/30/22 05/30/22 Unknown History aerosol inhaler (ProAir HFA) Wheezing aspirin 81 mg tablet,delayed 81 mg PO DAILY 05/30/22 05/30/22 Unknown History release brimonidine 0.2 % eye drops 1 drp ophthalmic (eye) DAILY 05/30/22 05/30/22 Unknown History demeclocycline 150 mg tablet 150 mg PO BID 05/30/22 05/30/22 Unknown History diltiazem HCl 120 mg 1 cap PO DAILY 05/30/22 05/30/22 Unknown History capsule,extended release 24 hr (Cartia XT) docusate sodium 100 mg capsule 100 mg PO BID 05/30/22 05/30/22 Unknown History (Colace) heparin (porcine) 5,000 unit/mL 5,000 unit subcut Q12H 05/30/22 05/30/22 Unknown History injection solution magnesium oxide 400 mg (241.3 mg 400 mg PO BID 05/30/22 05/30/22 Unknown History magnesium) tablet (MagOx) metoprolol succinate 100 mg 150 mg PO DAILY 05/30/22 05/30/22 Unknown History tablet,extended release 24 hr mirtazapine 15 mg tablet 15 mg PO BEDTIME 05/30/22 05/30/22 Unknown History sennosides 8.6 mg tablet (senna) 8.6 mg PO DAILY 05/30/22 05/30/22 Unknown History simvastatin 10 mg tablet 10 mg PO DAILY 05/30/22 05/30/22 Unknown History Physical Exam Vital Signs: Vital Signs: Last Vital Signs Temp 98.3 F 06/04/22 15:10 Pulse 118 H 06/04/22 15:10 Resp 20 06/04/22 15:10 BP 113/58 L 06/04/22 15:10 Pulse Ox 94 06/04/22 15:10 O2 Del Method 06/04/22 15:10 O2 Flow Rate 6 06/03/22 07:58 BMI result Body Mass Index 19.4 Const: General: cooperative HEENT: Other: some deafness Head: Yes normal to inspection Face and sinus: Yes normal facial exam Mouth: Normal oral and palatal mucosa present Teeth and gingiva: dentition normal Eyes: General: appearance normal, both eyes and all related structures Pupils: Equal, round and reactive pupils present Resp: Effort & Inspection: normal respiratory effort Cardio: Rate: regular rate Rhythm: regular rhythm GI: Palpation (GI): Soft to palpation and nontender : General: Yes no CVA tenderness Back/Spine/Pelvis: Back: no CVA tenderness Skin: General skin exam: no rashes or lesions noted Neuro: General: moves all extremities Cranial nerves: Yes Equal, round and reactive pupils present Extrem: General: Yes normal to inspection Psych: Appearance: grossly normal Results Labs 05/31/22 05:22 06/03/22 08:07 Microbiology Microbiology Results: Microbiology 05/30/22 11:10 Blood - Venous Blood Culture - Final No growth after 5 days. 05/30/22 10:58 Blood - Venous Blood Culture - Final No growth after 5 days. 05/30/22 Unknown Urine clean catch - Urine johnson top Urine Culture - Final Escherichia coli Assessment and Plan (1) Acute alteration in mental status: Status: Acute He has pyuria consistent with UTI He has ESBl E coli organism. (2) Urinary tract infection: Status: Acute Plan Would continue Merepenem total 10 days Urology to see. Time Spent With Patient Time: Total time managing care of this patient today ____ minutes.
--- NOTE | 2022-06-04 15:51 | MHC.CLN ---
NUTRITION ASKED TO SPEAK WITH RD. WOULD LIKE INFORMATION ABOUT HIGH PROTEIN FOODS. SAID THAT PATIENT HAD SEEN A ADVANCED MANAGER AND THAT WAS ADVISED TO FOLLOW FLUID RESTRICTION AND INCREASE DIETARY PROTEIN. PRINTED INFORMATION ABOUT HIGH-PROTEIN FOODS; TIPS FOR ADDING PROTEIN; HIGH-CALORIE, HIGH-PROTEIN RECIPES; AND FLUID-RESTRICTED NUTRITION THERAPY. WAS LEAVING ROOM AND AGREED THAT THIS HOME IMPROVEMENT INSTALLER WOULD LEAVE INFO FOR HER.
--- NOTE | 2022-06-04 17:22 | HO.MIDLINE ---
Midline Insertion MIDLINE INSERTION Diagnosis: Urinary Tract Infection Indication: Electronics Inspector Antibiotics Pertinent Labs: reviewed Technique: Using sterile technique including cap and mask, glove and drape, the left arm was prepped and draped in the usual sterile fashion of full barrier technique with CHG. Using ultrasound guidance, the left brachial vein access was obtained in a single attempt by this RN. A 20 guage 10 cm was positioned. The procedure was performed in S272. Ultrasound was used to document vein patency and for needle entry. A formal ultrasound picture was recorded. Vascular Concept Artist has released the line for use and it is currently dressed with a StatLock, Tegaderm, and CHG disc. Verification has been performed for blood return and line patency. Arm Circumference: 24 cm Equipment: [employer] Midline NonPASV Catheter Type: NonPASV Midline Lot #: [id number]
--- NOTE | 2022-06-04 17:32 | PC.NURSE ---
06/04 7a Patients changed urostomy bag with nursing present with no issues. All questions about plan of care answered and addressed with provider, and dietary. patient had midline placed by IR today for IV Abx.
[2022-06-04] MEDS: Docusate Sodium 100 MG CAPSULE PO (21:55)
[2022-06-04] MEDS: Heparin Sodium,Porcine Flush 50 UNITS, 0.9 % Sodium Chloride Flush 5 ML IVFLUSH (21:55)
[2022-06-04] MEDS: Mirtazapine 15 MG TABLET PO (21:55)
[2022-06-05 03:50] VITALS: BP 134/87; PULSE 90; RESP 18; TEMP 36.6; O2SAT 91
[2022-06-05 05:39] VITALS: BMI 19.4
[2022-06-05] MEDS: Heparin Sodium,Porcine 5,000 UNIT/ML VIAL 5000 UNIT SUBCUT ×2 (05:49→16:50)
[2022-06-05 07:13] LABS: Anion Gap 13 (12-20); Blood Urea Nitrogen 19 mg/dL (9-16); Calcium 9.5 mg/dL (8.4-10.2); Carbon Dioxide 23 mmol/L (22-29); Chloride 103 mmol/L (96-108); Estimated Glomerular Filt Rate > 60; Glucose Random 92 mg/dL (60-115); Sodium 135 mmol/L (135-145)
[2022-06-05 07:42] VITALS: BP 157/94; PULSE 93; RESP 16; TEMP 36.5; O2SAT 97
[2022-06-05] MEDS: Docusate Sodium 100 MG CAPSULE PO ×2 (08:30→19:38)
[2022-06-05] MEDS: Aspirin Enteric Coated 81 MG TABLET.DR PO (08:30)
[2022-06-05] MEDS: dilTIAZem HCL CD 120 MG CAP.ER.DEG PO (08:30)
[2022-06-05] MEDS: Metoprolol Succinate ER 50 MG TAB.ER.24H 150 MG PO (08:30)
[2022-06-05] MEDS: Atorvastatin Calcium 10 MG TABLET PO (08:30)
[2022-06-05] MEDS: Sennosides 8.6 MG TABLET PO (08:30)
[2022-06-05] MEDS: Magnesium Oxide 400 MG TABLET PO ×2 (08:30→19:39)
[2022-06-05] MEDS: Heparin Sodium,Porcine Flush 50 UNITS, 0.9 % Sodium Chloride Flush 5 ML IVFLUSH ×3 (08:31→19:37)
[2022-06-05] MEDS: ondansetron HCL 4 MG/2 ML VIAL IVPUSH (08:40)
[2022-06-05] MEDS: Brimonidine Tartrate 0.2% Oph 5 ML BOTTLE 1 DROP EYE-BOTH (09:29)
[2022-06-05] MEDS: Albuterol Sulfate (0.083%) 2.5 MG/3 ML VIAL.NEB INHALE ×2 (11:08→20:09)
[2022-06-05 11:09] VITALS: RESP 18; O2SAT 94
--- NOTE | 2022-06-05 11:14 | MHC.CM.PN ---
PER HOSPITALIST PT WILL NEED A TOTAL OF 10 DAYS OF DONALD MERTAPENEM AND WILL SWITCH TO ERTAPENEM UPON D/C, PER HI UNABLE TO SET UP NEW IV ABX ON AND WILL NEED TO WAIT UNTIL TUESDAY, PT'S WILL NEED A FORMAL TEACH AT BEDSIDE PRIOR TO D/C.
--- NOTE | 2022-06-05 15:41 | P.PNIM_ITS ---
Subjective Subjective Date of Service: 06/05/22 Interval History: seen and examined this morning follow up for esbl uti awake and alert no overnight events, no complaints this am Review of Systems Review of Systems: Yes all other systems are reviewed and are negative Constitutional Constitutional: Denies chills and Denies fever(s) Cardiovascular Cardiovascular: Denies chest pain, Denies palpitations and Denies dyspnea Respiratory Respiratory: Denies cough and Denies dyspnea Gastrointestinal Gastrointestinal: Denies abdominal pain, Denies nausea and Denies vomiting Endocrine Endocrine: Denies palpitations Physical Exam Vital Signs: Vital Signs: Last Vital Signs Temp 97.7 F 06/05/22 07:42 Pulse 93 06/05/22 07:42 Resp 18 06/05/22 11:09 BP 157/94 H 06/05/22 07:42 Pulse Ox 97 06/05/22 07:42 O2 Del Method 06/05/22 07:42 O2 Flow Rate 6 06/03/22 07:58 BMI result Body Mass Index 19.4 Const: General: alert and awake Nutritional Appearance: thin O rientation/consciousness: oriented to person, oriented to place and patient oriented x3 Resp: Effort & Inspection: normal respiratory effort and able to speak in complete sentences Cardio: Rate: regular rate Heart sounds: S1 normal heart sound present and S2 normal heart sound present GI: Inspection: No distended Palpation (GI): Soft to palpation and nontender : Other: urostomy present draining clear urine Neuro: Other: grossly nonfocal; moving all extremities General: oriented to person, oriented to place and patient oriented x3 Extrem: Other: chronic venous stasis changes b/l lower extremities General: Yes no pedal edema Objective Data Active Medications Acetaminophen (Acetaminophen 325 Mg Tablet) 650 mg PO Q6H PRN PRN Reason: Pain, Mild (Pain Scale 1-3) Albuterol Sulfate (Albuterol Sulfate (0.083%) 2.5 Mg/3 Ml Vial.Neb) 2.5 mg INHALE RQ4H WHILE AWAKE [facility] Last Admin: 06/05/22 15:21 Dose: Not Given Documented By: DARCY Non-Admin Reason: Patient Asleep Aspirin (Aspirin Enteric Coated 81 Mg Tablet.) 81 mg PO DAILY [facility] Last Admin: 06/05/22 08:30 Dose: 81 mg Documented By: JANNETTE Atorvastatin Calcium (Atorvastatin Calcium 10 Mg Tablet) 10 mg PO DAILY [facility] Last Admin: 06/05/22 08:30 Dose: 10 mg Documented By: JANNETTE Brimonidine Tartrate (Brimonidine Tartrate 0.2% Oph 5 Ml Bottle) 1 drop EYE- BOTH DAILY [facility] Last Admin: 06/05/22 09:29 Dose: 1 drop Documented By: JANNETTE Heparin Sodium (Porcine) 50 (units/ Sodium Chloride 5 ml) 0 units IVFLUSH TID [facility] Last Admin: 06/05/22 08:31 Dose: 50 unit Documented By: JANNETTE Diltiazem HCl (Diltiazem Hcl Cd 120 Mg Cap.Er.Deg) 120 mg PO DAILY [facility]; Protocol Last Admin: 06/05/22 08:30 Dose: 120 mg Documented By: JANNETTE Docusate Sodium (Docusate Sodium 100 Mg Capsule) 100 mg PO BID [facility] Last Admin: 06/05/22 08:30 Dose: 100 mg Documented By: JANNETTE Guaifenesin (Guaifenesin 100 Mg/5 Ml Liquid) 5 ml PO Q4H PRN PRN Reason: Cough Last Admin: 05/31/22 20:07 Dose: 5 ml Documented By: JENNIFER Guaifenesin (Guaifenesin 100 Mg/5 Ml Liquid) 5 ml PO Q4H PRN PRN Reason: Cough Heparin Sodium (Porcine) (Heparin Sodium,Porcine 5,000 Unit/Ml Vial) 5,000 unit SUBCUT Q12H [facility] Last Admin: 06/05/22 05:49 Dose: 5,000 unit Documented By: DENNIS Meropenem 1 gm/ Sodium (Chloride) 100 mls @ 200 mls/hr IV Q8H [facility] Last Infusion: 06/05/22 09:01 Dose: 0 mls/hr Documented By: JANNETTE Magnesium Oxide (Magnesium Oxide 400 Mg Tablet) 400 mg PO BID [facility] Last Admin: 06/05/22 08:30 Dose: 400 mg Documented By: JANNETTE Metoprolol Succinate (Metoprolol Succinate Er 50 Mg Tab.Er.24h) 150 mg PO DAILY [facility]; Protocol Last Admin: 06/05/22 08:30 Dose: 150 mg Documented By: JANNETTE Mirtazapine (Mirtazapine 15 Mg Tablet) 15 mg PO BEDTIME [facility] Last Admin: 06/04/22 21:55 Dose: 15 mg Documented By: DENNIS Non-Formulary Medication (Demeclocycline) 150 mg PO BID [facility] Ondansetron HCl (Ondansetron Hcl 4 Mg/2 Ml Vial) 4 mg IVPUSH Q8H PRN PRN Reason: Nausea and Vomiting Last Admin: 06/05/22 08:40 Dose: 4 mg Documented By: JANNETTE Pharmacy Consult (Consult Rx Perform Med Rec) 1 each MISCELLANE ONCE PRN PRN Reason: Consult order Senna (Sennosides 8.6 Mg Tablet) 8.6 mg PO DAILY [facility] Last Admin: 06/05/22 08:30 Dose: 8.6 mg Documented By: JANNETTE Sodium Chloride (0.9 % Sodium Chloride Flush 3 Ml Syringe) 3 ml IVFLUSH QSHIFT [facility] Last Admin: 06/05/22 08:35 Dose: Not Given Documented By: JANNETTE Non-Admin Reason: midline Labs 05/31/22 05:22 06/05/22 05:45 Labs: Laboratory Results - last 24 hr 06/05/22 05:45 Anion Gap 13 Estim Creat Clear Calc 66.0 Estimated GFR > 60 Random Glucose 92 Calcium 9.5 Microbiology Microbiology Results: Microbiology 05/30/22 11:10 Blood Culture - Final Blood - Venous No growth after 5 days. 05/30/22 10:58 Blood Culture - Final Blood - Venous No growth after 5 days. Assessment and Plan (1) Urinary tract infection: Status: Acute Plan 76 year old man presenting with acute encephalopathy secondary to urinary tract infection with history of urostomy Acute toxic metabolic encephalopathy secondary to Ecoli UTI had an episode of staring, seen by neurology -rec to treat UTI. of note brain ct does show diffuse volume loss and chronic microangiopathic ischemic changes Rocephin started 05/31/22. 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 Garcia Full code DISPO seen by Physical therapy, recommend short-term rehab. Long discussion with the , she prefers to take him home with home services if possible Unable to have home infusion of antibiotics set up until Tuesday continued hospitalization for tx of encephalopathy and UTI Time Spent With Patient Time: Total time managing care of this patient today ____ minutes. Quality Stroke Does the patient have a stroke diagnosis?: No VTE Prior VTE?: No VTE Risk Level:: Medical - moderate - high VTE Device Contraindication: Treatment Not Indicated VTE Drug Contraindication: N/A - Med Ordered
[2022-06-05 16:00] VITALS: BP 133/70; PULSE 89; RESP 18; TEMP 37.2; O2SAT 93
[2022-06-05 19:29] VITALS: BP 123/77; PULSE 76; RESP 18; TEMP 36.8; O2SAT 95
[2022-06-05] MEDS: Mirtazapine 15 MG TABLET PO (19:38)
[2022-06-05 20:05] VITALS: PULSE 101; RESP 16; O2SAT 95
[2022-06-06] VITALS (8 sets, daily range): BP systolic 122–140; BP diastolic 58–83; PULSE 69–100; RESP 18; TEMP 36.6–36.7; O2SAT 93–97; BMI 19.8
[2022-06-06] MEDS: Heparin Sodium,Porcine 5,000 UNIT/ML VIAL 5000 UNIT SUBCUT ×2 (05:58→17:33)
[2022-06-06] MEDS: Albuterol Sulfate (0.083%) 2.5 MG/3 ML VIAL.NEB INHALE ×4 (07:49→19:47)
[2022-06-06] MEDS: Aspirin Enteric Coated 81 MG TABLET.DR PO (08:55)
[2022-06-06] MEDS: Heparin Sodium,Porcine Flush 50 UNITS, 0.9 % Sodium Chloride Flush 5 ML IVFLUSH ×3 (08:56→20:02)
[2022-06-06] MEDS: Atorvastatin Calcium 10 MG TABLET PO (08:56)
[2022-06-06] MEDS: Sennosides 8.6 MG TABLET PO (08:56)
[2022-06-06] MEDS: Docusate Sodium 100 MG CAPSULE PO ×2 (08:56→20:02)
[2022-06-06] MEDS: Magnesium Oxide 400 MG TABLET PO ×2 (08:56→20:02)
[2022-06-06] MEDS: dilTIAZem HCL CD 120 MG CAP.ER.DEG PO (08:56)
[2022-06-06] MEDS: Metoprolol Succinate ER 50 MG TAB.ER.24H 150 MG PO (09:01)
[2022-06-06] MEDS: Brimonidine Tartrate 0.2% Oph 5 ML BOTTLE 1 DROP EYE-BOTH (09:03)
--- NOTE | 2022-06-06 13:23 | HO.PM.IMPN ---
Subjective Subjective Date of Service: 06/06/22 Interval History: seen and examined this morning follow up for UTI no overnight events no specific complaints this morning, no fever/chills, nausea or vomiting Review of Systems Review of Systems: Yes all other systems are reviewed and are negative Constitutional Constitutional: Denies chills and Denies fever(s) Cardiovascular Cardiovascular: Denies chest pain, Denies palpitations and Denies dyspnea Respiratory Respiratory: Denies cough and Denies dyspnea Gastrointestinal Gastrointestinal: Denies abdominal pain, Denies nausea and Denies vomiting Endocrine Endocrine: Denies palpitations Physical Exam Vital Signs: Vital Signs: Last Vital Signs Temp 97.8 F 06/06/22 07:58 Pulse 100 06/06/22 11:24 Resp 18 06/06/22 11:24 BP 140/83 H 06/06/22 07:58 Pulse Ox 93 06/06/22 07:58 O2 Del Method 06/06/22 07:58 O2 Flow Rate 6 06/03/22 07:58 BMI result Body Mass Index 19.8 Const: Other: hard of hearing General: alert and awake Nutritional Appearance: thin Orientation/consciousness: patient oriented x3 Resp: Effort & Inspection: normal respiratory effort and able to speak in complete sentences Cardio: Rate: regular rate Heart sounds: S1 normal heart sound present and S2 normal heart sound present GI: Inspection: No distended Palpation (GI): Soft to palpation and nontender : Other: urostomy present draining clear urine Neuro: Other: grossly nonfocal; moving all extremities General: patient oriented x3 Extrem: Other: chronic venous stasis changes b/l lower extremities General: Yes no pedal edema Objective Data Active Medications Acetaminophen (Acetaminophen 325 Mg Tablet) 650 mg PO Q6H PRN PRN Reason: Pain, Mild (Pain Scale 1-3) Albuterol Sulfate (Albuterol Sulfate (0.083%) 2.5 Mg/3 Ml Vial.Neb) 2.5 mg INHALE RQ4H WHILE AWAKE [facility] Last Admin: 06/06/22 11:23 Dose: 2.5 mg Documented By: THOMAS Aspirin (Aspirin Enteric Coated 81 Mg Tablet.) 81 mg PO DAILY [facility] Last Admin: 06/06/22 08:55 Dose: 81 mg Documented By: JANNETTE Atorvastatin Calcium (Atorvastatin Calcium 10 Mg Tablet) 10 mg PO DAILY [facility] Last Admin: 06/06/22 08:56 Dose: 10 mg Documented By: JANNETTE Brimonidine Tartrate (Brimonidine Tartrate 0.2% Oph 5 Ml Bottle) 1 drop EYE-BOTH DAILY [facility] Last Admin: 06/06/22 09:03 Dose: 1 drop Documented By: JANNETTE Heparin Sodium (Porcine) 50 (units/ Sodium Chloride 5 ml) 0 units IVFLUSH TID [facility] Last Admin: 06/06/22 08:56 Dose: 50 unit Documented By: JANNETTE Diltiazem HCl (Diltiazem Hcl Cd 120 Mg Cap.Er.Deg) 120 mg PO DAILY [facility]; Protocol Last Admin: 06/06/22 08:56 Dose: 120 mg Documented By: JANNETTE Docusate Sodium (Docusate Sodium 100 Mg Capsule) 100 mg PO BID [facility] Last Admin: 06/06/22 08:56 Dose: 100 mg Documented By: JANNETTE Guaifenesin (Guaifenesin 100 Mg/5 Ml Liquid) 5 ml PO Q4H PRN PRN Reason: Cough Last Admin: 05/31/22 20:07 Dose: 5 ml Documented By: JENNIFER Guaifenesin (Guaifenesin 100 Mg/5 Ml Liquid) 5 ml PO Q4H PRN PRN Reason: Cough Heparin Sodium (Porcine) (Heparin Sodium,Porcine 5,000 Unit/Ml Vial) 5,000 unit SUBCUT Q12H [facility] Last Admin: 06/06/22 05:58 Dose: 5,000 unit Documented By: DENNIS Meropenem 1 gm/ Sodium (Chloride) 100 mls @ 200 mls/hr IV Q8H [facility] Last Infusion: 06/06/22 09:25 Dose: 0 mls/hr Documented By: JANNETTE Magnesium Oxide (Magnesium Oxide 400 Mg Tablet) 400 mg PO BID [facility] Last Admin: 06/06/22 08:56 Dose: 400 mg Documented By: JANNETTE Metoprolol Succinate (Metoprolol Succinate Er 50 Mg Tab.Er.24h) 150 mg PO DAILY [facility]; Protocol Last Admin: 06/06/22 09:01 Dose: 150 mg Documented By: JANNETTE Mirtazapine (Mirtazapine 15 Mg Tablet) 15 mg PO BEDTIME [facility] Last Admin: 06/05/22 19:38 Dose: 15 mg Documented By: DENNIS Non-Formulary Medication (Demeclocycline) 150 mg PO BID [facility] Ondansetron HCl (Ondansetron Hcl 4 Mg/2 Ml Vial) 4 mg IVPUSH Q8H PRN PRN Reason: Nausea and Vomiting Last Admin: 06/05/22 08:40 Dose: 4 mg Documented By: JANNETTE Pharmacy Consult (Consult Rx Perform Med Rec) 1 each MISCELLANE ONCE PRN PRN Reason: Consult order Senna (Sennosides 8.6 Mg Tablet) 8.6 mg PO DAILY [facility] Last Admin: 06/06/22 08:56 Dose: 8.6 mg Documented By: JANNETTE Sodium Chloride (0.9 % Sodium Chloride Flush 3 Ml Syringe) 3 ml IVFLUSH QSHIFT [facility] Last Admin: 06/06/22 08:56 Dose: Not Given Documented By: JANNETTE Non-Admin Reason: midline Labs 05/31/22 05:22 06/05/22 05:45 Assessment and Plan (1) Urinary tract infection: Status: Acute Plan 76 year old man presenting with acute encephalopathy secondary to urinary tract infection with history of urostomy Acute toxic metabolic encephalopathy secondary to Ecoli UTI had an episode of staring, seen by neurology -rec to treat UTI. of note brain ct does show diffuse volume loss and chronic microangiopathic ischemic changes Rocephin started 05/31/22. 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 Trinidad Full code DISPO seen by Physical therapy, recommend short-term rehab. Patient's prefers to take him home with home services. Unable to have home infusion of antibiotics set up until Adam continued hospitalization for tx of encephalopathy and UTI Time Spent With Patient Time: Total time managing care of this patient today ____ minutes. Quality Stroke Does the patient have a stroke diagnosis?: No VTE Prior VTE?: No VTE Risk Level:: Medical - moderate - high VTE Device Contraindication: Treatment Not Indicated VTE Drug Contraindication: N/A - Med Ordered
[2022-06-06] MEDS: Mirtazapine 15 MG TABLET PO (20:01)
[2022-06-07 03:18] VITALS: BP 110/69; PULSE 97; RESP 16; TEMP 36.5; O2SAT 91
--- NOTE | 2022-06-07 03:30 | PC.NURSE ---
Pt is a mouth breather when he sleeps. O2 was found to be 89-91% on RA. Pt placed on 2L nc for sleep. O2 now 95%.
[2022-06-07] MEDS: Heparin Sodium,Porcine 5,000 UNIT/ML VIAL 5000 UNIT SUBCUT ×2 (05:18→16:48)
[2022-06-07 05:21] VITALS: PULSE 81; O2SAT 95
[2022-06-07 08:00] VITALS: BP 136/79; PULSE 99; RESP 20; TEMP 36.8; O2SAT 98
[2022-06-07] MEDS: dilTIAZem HCL CD 120 MG CAP.ER.DEG PO (09:04)
[2022-06-07] MEDS: Docusate Sodium 100 MG CAPSULE PO ×2 (09:04→21:57)
[2022-06-07] MEDS: Sennosides 8.6 MG TABLET PO (09:04)
[2022-06-07] MEDS: Atorvastatin Calcium 10 MG TABLET PO (09:04)
[2022-06-07] MEDS: Metoprolol Succinate ER 50 MG TAB.ER.24H 150 MG PO (09:04)
[2022-06-07] MEDS: Magnesium Oxide 400 MG TABLET PO ×2 (09:05→21:57)
[2022-06-07] MEDS: 0.9 % Sodium Chloride Flush 3 ML SYRINGE IVFLUSH ×3 (09:05→21:41)
[2022-06-07] MEDS: Heparin Sodium,Porcine Flush 50 UNITS, 0.9 % Sodium Chloride Flush 5 ML IVFLUSH ×3 (09:05→21:41)
[2022-06-07] MEDS: Aspirin Enteric Coated 81 MG TABLET.DR PO (09:05)
[2022-06-07] MEDS: Brimonidine Tartrate 0.2% Oph 5 ML BOTTLE 1 DROP EYE-BOTH (09:06)
--- NOTE | 2022-06-07 11:14 | HO.PM.IMPN ---
Subjective Subjective Date of Service: 06/07/22 Interval History: seen and examined this morning follow up for UTI, encephalopathy no overnight events no specific complaints this morning, no fever/chills, nausea or vomiting Review of Systems Review of Systems: Yes all other systems are reviewed and are negative Constitutional Constitutional: Denies chills and Denies fever(s) Cardiovascular Cardiovascular: Denies chest pain, Denies palpitations and Denies dyspnea Respiratory Respiratory: Denies cough and Denies dyspnea Gastrointestinal Gastrointestinal: Denies abdominal pain, Denies nausea and Denies vomiting Endocrine Endocrine: Denies palpitations Physical Exam Vital Signs: Vital Signs: Last Vital Signs Temp 98.3 F 06/07/22 08:00 Pulse 99 06/07/22 08:00 Resp 20 06/07/22 08:00 BP 136/79 06/07/22 08:00 Pulse Ox 98 06/07/22 08:00 O2 Del Method Nasal Cannula 06/07/22 08:00 O2 Flow Rate 1 06/07/22 08:00 BMI result Body Mass Index 19.8 Appearing in no acute distress lung sounds are clear to auscultation heart regular rate rhythm, clear S1, S2 positive bowel sounds, abdomen is soft, nontender neuro patient is alert x3, no focal deficits Objective Data Active Medications Acetaminophen (Acetaminophen 325 Mg Tablet) 650 mg PO Q6H PRN PRN Reason: Pain, Mild (Pain Scale 1-3) Aspirin (Aspirin Enteric Coated 81 Mg Tablet.) 81 mg PO DAILY [facility] Last Admin: 06/07/22 09:05 Dose: 81 mg Documented By: ARTUR Atorvastatin Calcium (Atorvastatin Calcium 10 Mg Tablet) 10 mg PO DAILY [facility] Last Admin: 06/07/22 09:04 Dose: 10 mg Documented By: ARTUR Brimonidine Tartrate (Brimonidine Tartrate 0.2% Oph 5 Ml Bottle) 1 drop EYE-BOTH DAILY [facility] Last Admin: 06/07/22 09:06 Dose: 1 drop Documented By: ARTUR Heparin Sodium (Porcine) 50 (units/ Sodium Chloride 5 ml) 0 units IVFLUSH TID [facility] Last Admin: 06/07/22 09:05 Dose: 50 unit Documented By: ARTUR Diltiazem HCl (Diltiazem Hcl Cd 120 Mg Cap.Er.Deg) 120 mg PO DAILY [facility]; Protocol Last Admin: 06/07/22 09:04 Dose: 120 mg Documented By: ARTUR Docusate Sodium (Docusate Sodium 100 Mg Capsule) 100 mg PO BID [facility] Last Admin: 06/07/22 09:04 Dose: 100 mg Documented By: ARTUR Guaifenesin (Guaifenesin 100 Mg/5 Ml Liquid) 5 ml PO Q4H PRN PRN Reason: Cough Last Admin: 05/31/22 20:07 Dose: 5 ml Documented By: JENNIFER Guaifenesin (Guaifenesin 100 Mg/5 Ml Liquid) 5 ml PO Q4H PRN PRN Reason: Cough Heparin Sodium (Porcine) (Heparin Sodium,Porcine 5,000 Unit/Ml Vial) 5,000 unit SUBCUT Q12H [facility] Last Admin: 06/07/22 05:18 Dose: 5,000 unit Documented By: DIANNE Meropenem 1 gm/ Sodium (Chloride) 100 mls @ 200 mls/hr IV Q8H [facility] Last Infusion: 06/07/22 10:07 Dose: 0 mls/hr Documented By: ARTUR Magnesium Oxide (Magnesium Oxide 400 Mg Tablet) 400 mg PO BID [facility] Last Admin: 06/07/22 09:05 Dose: 400 mg Documented By: ARTUR Metoprolol Succinate (Metoprolol Succinate Er 50 Mg Tab.Er.24h) 150 mg PO DAILY [facility]; Protocol Last Admin: 06/07/22 09:04 Dose: 150 mg Documented By: ARTUR Mirtazapine (Mirtazapine 15 Mg Tablet) 15 mg PO BEDTIME [facility] Last Admin: 06/06/22 20:01 Dose: 15 mg Documented By: DIANNE Non-Formulary Medication (Demeclocycline) 150 mg PO BID [facility] Ondansetron HCl (Ondansetron Hcl 4 Mg/2 Ml Vial) 4 mg IVPUSH Q8H PRN PRN Reason: Nausea and Vomiting Last Admin: 06/05/22 08:40 Dose: 4 mg Documented By: JANNETTE Pharmacy Consult (Consult Rx Perform Med Rec) 1 each MISCELLANE ONCE PRN PRN Reason: Consult order Senna (Sennosides 8.6 Mg Tablet) 8.6 mg PO DAILY [facility] Last Admin: 06/07/22 09:04 Dose: 8.6 mg Documented By: ARTUR Sodium Chloride (0.9 % Sodium Chloride Flush 3 Ml Syringe) 3 ml IVFLUSH QSHIFT [facility] Last Admin: 06/07/22 09:05 Dose: 3 ml Documented By: ARTUR Labs 05/31/22 05:22 06/05/22 05:45 Assessment and Plan (1) Urinary tract infection: Status: Acute Plan 76 year old man presenting with acute encephalopathy secondary to urinary tract infection with history of urostomy Acute toxic metabolic encephalopathy secondary to Ecoli UTI had an episode of staring, seen by neurology -rec to treat UTI. of note brain ct does show diffuse volume loss and chronic microangiopathic ischemic changes Rocephin started 05/31/22. 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 Butterfield Full code Disposition. Plan to transfer to rehab when bed becomes available continued hospitalization for tx of encephalopathy and UTI Time Spent With Patient Time: Total time managing care of this patient today ____ minutes. Quality Stroke Does the patient have a stroke diagnosis?: No VTE Prior VTE?: No VTE Risk Level:: Medical - moderate - high VTE Device Contraindication: Treatment Not Indicated VTE Drug Contraindication: N/A - Med Ordered
[2022-06-07 16:00] VITALS: BP 159/83; PULSE 85; RESP 18; TEMP 36.8; O2SAT 98
[2022-06-07 18:52] VITALS: BP 155/70; PULSE 115; RESP 18; TEMP 36.4; O2SAT 95
--- NOTE | 2022-06-07 19:36 | PM.UROCN ---
History of Present Illness Consult details Consult date: 06/07/22 Narrative: CC: ? UTI with urostomy Jemal is a pleasant 76-year-old male. He was accompanied by his during this evaluation. Primary concern from a urologic perspective is question of recurrent UTI from urostomy. Jemal was diagnosed with bladder cancer in 2009 and underwent cystectomy at [facility]. Had been in his usual health until this past February. Since then has had a number of challenging medical events. These include admission to hospital for endovascular repair followed by rehabilitation. Rehabilitation has been extended secondary to episode of pneumonia, hip fracture and subsequent metabolic SIADH. These hospitalizations have included mental changes at the beginning of April. Asymptomatic back to urea had been noted during these prior admissions and he has been treated multiple times for asymptomatic bacteriuria. Today we discussed the ongoing nature of chronic colonization that will be part of urostomy. Currently he is receiving meropenem. White count is 7.0. Urine cultures positive for ESBL E coli. Imaging has not been completed. Decision to treat in the setting of bacterial colonization is difficult. All other potential sources for infection must be ruled out prior to repeat testing of presumed urinary tract infection which may well be asymptomatic and chronic in nature. Would best proceed with bacterial suppression. In the setting combination vitamin-C with methenamine as chemoprophylaxis would be preferred to antibiotic prophylaxis. Imaging should be performed to rule out potential obstruction. Review of Systems Constitutional: Constitutional: Reports as per HPI and Reports no additional constitutional complaints Cardiovascular: Cardiovascular: Reports as per HPI and Reports no additional cardiovascular complaints Respiratory: Respiratory: Reports as per HPI and Reports no additional respiratory complaints Gastrointestinal: Gastrointestinal: Reports as per HPI and Reports no additional gastrointestinal complaints Genitourinary: Genitourinary: Reports as per HPI Musculoskeletal: Musculoskeletal: Reports no additional musculoskeletal complaints and Reports as per HPI Neurologic: Reports system reviewed and no additional complaints, except as documented and Reports as per HPI PMFSH Past Medical History Medical History (HFpEF) heart failure with preserved ejection fraction Atrial fibrillation History of SIADH Hyperlipidemia Hypertension Presence of Watchman left atrial appendage closure device Functional capacity: independent ambulation Surgical History Surgical History History of urostomy S/P ORIF (open reduction internal fixation) fracture Social History Social History Household Members: None Housing: Alf Do you presently have visiting nurse or other home services: No Patient Tobacco Use Status: Former Tobacco user Use of substances other than those prescribed or required for medical reasons: No Currently Displaying Signs/Symptoms of Drug Intoxication Withdrawal: No Have you been hit, kicked, punched, or otherwise hurt by someone within the past year? If so, by whom?: No Do you feel safe in your current relationship?: Yes Is there a partner from a previous relationship who is making you feel unsafe now?: No Are you made to feel afraid or neglected: No Advance Directives: Yes Advance Directives Information Provided: No Advance Directives on File: No Advance Directives Date on File: 05/30/22 Do you have thoughts of harming others: None Do you have a plan to hurt others: No Plan Recently lost weight without trying: No Eating poorly because of decreased appetite: No Nutrition Risks: No Nutritional Risk Poor oral hygiene: No service: No Current occupational status: retired [employer] Allergies Allergy/AdvReac Type Severity Reaction Status Date / Time lisinopril Allergy Rash Verified 05/30/22 10:41 Active Medications: Current Medications Acetaminophen (Acetaminophen 325 Mg Tablet) 650 mg PO Q6H PRN PRN Reason: Pain, Mild (Pain Scale 1-3) Aspirin (Aspirin Enteric Coated 81 Mg Tablet.) 81 mg PO DAILY [facility] Last Admin: 06/07/22 09:05 Dose: 81 mg Atorvastatin Calcium (Atorvastatin Calcium 10 Mg Tablet) 10 mg PO DAILY [facility] Last Admin: 06/07/22 09:04 Dose: 10 mg Brimonidine Tartrate (Brimonidine Tartrate 0.2% Oph 5 Ml Bottle) 1 drop EYE-BOTH DAILY [facility] Last Admin: 06/07/22 09:06 Dose: 1 drop Heparin Sodium (Porcine) 50 (units/ Sodium Chloride 5 ml) 0 units IVFLUSH TID [facility] Last Admin: 06/07/22 16:08 Dose: 50 unit Diltiazem HCl (Diltiazem Hcl Cd 120 Mg Cap.Er.Deg) 120 mg PO DAILY [facility]; Protocol Last Admin: 06/07/22 09:04 Dose: 120 mg Docusate Sodium (Docusate Sodium 100 Mg Capsule) 100 mg PO BID [facility] Last Admin: 06/07/22 09:04 Dose: 100 mg Guaifenesin (Guaifenesin 100 Mg/5 Ml Liquid) 5 ml PO Q4H PRN PRN Reason: Cough Last Admin: 05/31/22 20:07 Dose: 5 ml Guaifenesin (Guaifenesin 100 Mg/5 Ml Liquid) 5 ml PO Q4H PRN PRN Reason: Cough Heparin Sodium (Porcine) (Heparin Sodium,Porcine 5,000 Unit/Ml Vial) 5,000 unit SUBCUT Q12H [facility] Last Admin: 06/07/22 16:48 Dose: 5,000 unit Meropenem 1 gm/ Sodium (Chloride) 100 mls @ 200 mls/hr IV Q8H [facility] Last Infusion: 06/07/22 16:45 Dose: Infused Magnesium Oxide (Magnesium Oxide 400 Mg Tablet) 400 mg PO BID [facility] Last Admin: 06/07/22 09:05 Dose: 400 mg Metoprolol Succinate (Metoprolol Succinate Er 50 Mg Tab.Er.24h) 150 mg PO DAILY [facility]; Protocol Last Admin: 06/07/22 09:04 Dose: 150 mg Mirtazapine (Mirtazapine 15 Mg Tablet) 15 mg PO BEDTIME [facility] Last Admin: 06/06/22 20:01 Dose: 15 mg Non-Formulary Medication (Demeclocycline) 150 mg PO BID [facility] Ondansetron HCl (Ondansetron Hcl 4 Mg/2 Ml Vial) 4 mg IVPUSH Q8H PRN PRN Reason: Nausea and Vomiting Last Admin: 06/05/22 08:40 Dose: 4 mg Pharmacy Consult (Consult Rx Perform Med Rec) 1 each MISCELLANE ONCE PRN PRN Reason: Consult order Senna (Sennosides 8.6 Mg Tablet) 8.6 mg PO DAILY [facility] Last Admin: 06/07/22 09:04 Dose: 8.6 mg Sodium Chloride (0.9 % Sodium Chloride Flush 3 Ml Syringe) 3 ml IVFLUSH QSHIFT [facility] Last Admin: 06/07/22 16:09 Dose: 3 ml Home Medications Medication Instructions Recorded Confirmed Last Taken Type acetaminophen 325 mg tablet 650 mg PO Q4H PRN Pain 05/30/22 05/30/22 Unknown History albuterol sulfate 90 mcg/actuation 2 puff inhalation Q4-6H PRN 01/08/23 01/08/23 Unknown History aerosol inhaler (ProAir HFA) Wheezing aspirin 81 mg tablet,delayed 81 mg PO DAILY 05/30/22 05/30/22 Unknown History release brimonidine 0.2 % eye drops 1 drp ophthalmic (eye) DAILY 05/30/22 05/30/22 Unknown History demeclocycline 150 mg tablet 150 mg PO BID 05/30/22 05/30/22 Unknown History diltiazem HCl 120 mg 1 cap PO DAILY 05/30/22 05/30/22 Unknown History capsule,extended release 24 hr (Cartia XT) docusate sodium 100 mg capsule 100 mg PO BID 05/30/22 05/30/22 Unknown History (Colace) heparin (porcine) 5,000 unit/mL 5,000 unit subcut Q12H 05/30/22 05/30/22 Unknown History injection solution magnesium oxide 400 mg (241.3 mg 400 mg PO BID 05/30/22 05/30/22 Unknown History magnesium) tablet (MagOx) metoprolol succinate 100 mg 150 mg PO DAILY 05/30/22 05/30/22 Unknown History tablet,extended release 24 hr mirtazapine 15 mg tablet 15 mg PO BEDTIME 05/30/22 05/30/22 Unknown History sennosides 8.6 mg tablet (senna) 8.6 mg PO DAILY 05/30/22 05/30/22 Unknown History simvastatin 10 mg tablet 10 mg PO DAILY 05/30/22 05/30/22 Unknown History Physical Exam Vital Signs: Vital Signs: Last Vital Signs Temp 97.6 F 06/07/22 18:52 Pulse 115 H 06/07/22 18:52 Resp 18 06/07/22 18:52 BP 155/70 H 06/07/22 18:52 Pulse Ox 95 06/07/22 18:52 O2 Del Method 06/07/22 18:52 O2 Flow Rate 1 06/07/22 08:00 BMI result Body Mass Index 19.8 Const: General: cooperative, healthy appearing, comfortable and no acute distress Orientation/consciousness: patient oriented x3 HEENT: Face and sinus: Yes normal facial exam Mouth: moist mucous membranes Neck: Neck: Yes normal visual inspection, Yes full ROM and Yes trachea midline Chest: Chest palpation & inspection: normal inspection of the chest Resp: Effort & Inspection: normal respiratory effort, able to speak in complete sentences and no respiratory distress GI: Inspection: Yes normal to inspection Back/Spine/Pelvis: Cervical Spine: normal cervical lordosis Thoracic/Lumbar Spine: thoracic and lumbar spine normal to inspection Skin: General skin exam: no rashes or lesions noted Neuro: General: patient oriented x3, tone normal and moves all extremities Extrem: General: Yes normal to inspection and Yes capillary refill normal Results Labs 05/31/22 05:22 06/05/22 05:45 Labs: Urine 05/30/22 Range/Units 13:32 Urine Color Yellow Urine Appearance Cloudy Urine pH 7.0 (5.0-9.0) Ur Specific [place] 1.010 (1.005-1.025) Urine Protein Negative (Neg-Trace) mg/dL Urine Glucose (UA) Negative (Negative) mg/dL All other labs normal. Assessment and Plan (1) Complicated urinary tract infection: Status: Acute Plan imaging Initiate ascorbic acid and methenamine chemo prophylaxis Time Spent With Patient Time: Total time managing care of this patient today ____ minutes. Procedures Date of Service Date of Service: 06/07/22
[2022-06-07] MEDS: Mirtazapine 15 MG TABLET PO (21:57)
--- NOTE | 2022-06-08 | ECG_ITS ---
Test Reason : tachycardia Blood Pressure : / mmHG Vent. Rate : 065 BPM Atrial Rate : 000 BPM P-R Int : 000 ms QRS Dur : 094 ms QT Int : 400 ms P-R-T Axes : 000 -06 024 degrees QTc Int : 416 ms Atrial fibrillation Abnormal ECG When compared with ECG of 30-MAY-2022 10:48, QT has shortened Referred By: Wilma Matos Electronically Signed By:ORALIA FORD MD
[2022-06-08 03:36] VITALS: BP 132/80; PULSE 104; RESP 18; TEMP 37.1; O2SAT 96
[2022-06-08] MEDS: Heparin Sodium,Porcine 5,000 UNIT/ML VIAL 5000 UNIT SUBCUT (05:58)
[2022-06-08 07:27] VITALS: BP 139/71; PULSE 101; RESP 18; TEMP 36.9; O2SAT 96
[2022-06-08 07:37] LABS: MANUAL DIFF FLAG NO
[2022-06-08 07:42] LABS: Basophils Absolute Auto 0.1 X10*3/uL (0.0-0.2); Basophils Percent Auto 0.6 % (0-2); Eosinophils Absolute Auto 0.8 X10*3/uL (0.0-0.4); Eosinophils Percent Auto 10.1 % (0-4); Hematocrit 26.3 % (42.0-52.0); Hemoglobin 8.6 g/dl (14.0-18.0); Imm Gran Abs Auto 0.04 X10*3/uL (0.00-0.03); Imm Gran Pct Auto 0.5 % (0.0-0.4); Mean Corpuscular HGB Conc 32.7 g/dl (31.0-36.0); Mean Corpuscular Hemoglobin 27.6 pg (27.0-33.0); Mean Corpuscular Volume 84.3 fL (80.0-98.0); Mean Platelet Volume 8.8 fL (9.4-12.4); Monocytes Absolute Auto 0.7 X10*3/uL (0.1-1.2); Monocytes Percent Auto 8.2 % (2-11); Neutrophils Absolute Auto 4.7 x10*3/uL (2.0-8.3); Neutrophils Percent Auto 56.6 % (45-73); Platelet Count 210 X10*3/uL (160-400); Red Blood Count 3.12 X10*6/uL (4.60-5.80); Red Cell Distribution Width 15.7 % (11.0-16.0); White Blood Count 8.3 X10*3/uL (4.8-10.8)
[2022-06-08] MEDS: Heparin Sodium,Porcine Flush 50 UNITS, 0.9 % Sodium Chloride Flush 5 ML IVFLUSH ×2 (08:02→15:32)
[2022-06-08] MEDS: 0.9 % Sodium Chloride Flush 3 ML SYRINGE IVFLUSH ×2 (08:02→15:33)
[2022-06-08] MEDS: Atorvastatin Calcium 10 MG TABLET PO (08:03)
[2022-06-08] MEDS: Magnesium Oxide 400 MG TABLET PO (08:03)
[2022-06-08] MEDS: Ascorbic Acid 500 MG TABLET 1000 MG PO (08:03)
[2022-06-08] MEDS: Aspirin Enteric Coated 81 MG TABLET.DR PO (08:03)
[2022-06-08] MEDS: Sennosides 8.6 MG TABLET PO (08:04)
[2022-06-08] MEDS: Brimonidine Tartrate 0.2% Oph 5 ML BOTTLE 1 DROP EYE-BOTH (08:04)
[2022-06-08] MEDS: dilTIAZem HCL CD 120 MG CAP.ER.DEG PO (08:04)
[2022-06-08] MEDS: Metoprolol Succinate ER 50 MG TAB.ER.24H 150 MG PO (08:04)
[2022-06-08 10:39] LABS: OBS Int Ctl Valid YES; OBS1 NEGATIVE (NEGATIVE)
[2022-06-08 12:39] LABS: COVID-19 Test Negative (Negative); IDNOW Serial# 16C4AD1C
--- NOTE | 2022-06-08 13:28 | MHC.CM.PN ---
IMM 06/08/22 Patient is discharged today. He will transfer to [facility]. S is booked for 4pm transport. A covid test result (negative) has been sent to the facility. Family has been notified of discharge today.
--- NOTE | 2022-06-08 14:08 | P.DS_ITS ---
DS: Providers Provider Date of Service: 06/08/22 Date of admission: 05/30/22 15:55 Primary care physician: Armand Del Cid MD Consults: 06/01/22 09:01 Consult to Neurology Routine Consulting Provider: [facility] Reason for consultation: encephalopathy, staring in space Has provider been notified: No 06/03/22 07:49 Consult to Infectious Diseases Routine Consulting Provider: Sil Christensen Reason for consultation: resistent UTI Has provider been notified: No 06/07/22 10:28 Consult to Urology Routine Consulting Provider: Shaheen Kellogg Reason for consultation: frequent UTI, urostomy Has provider been notified: No Attending physician on discharge: Mani Butterfield Discharging clinician: Wilma Matos DS: Diagnosis Discharge Diagnosis (1) Complicated urinary tract infection: Status: Acute DS: Summary Hospital Course Hospital Course: HP as per admitting provider 76 year old man presenting to the ED from his [facility] nursing facility for evaluation of altered mental status.? Patient states that he woke up this morning, shaved, did not eat breakfast and then went back to bed.? He states that the next thing he remembers is waking up and he was being placed an ambulance.? He states that he has been staying at this nursing facility for several weeks prior to that was living at home.? After his AAA repair in 03/13 he had some medical issues that landed him in rehab including hip fracture and recent dx of SIADH at [facility]. He was subsequently sent to rehab from there. He denied chest pain, shortness breath, nausea, vomiting, diarrhea.? He reports he does have a chronic cough that comes and goes but no sputum.? Labs within acceptable limits, vital signs stable. He will be admitted for further management and tx of encephalopathy and UTI . Acute toxic metabolic encephalopathy secondary to Ecoli UTI had an episode of staring, seen by neurology -rec to treat UTI. of note brain ct does show diffuse volume loss and chronic microangiopathic ischemic changes Rocephin started 05/31/22. urine culture growing ESBL positive E coli, transitioned to meropenem seen by ID, rec 10 days of IV meropenem or ertapenem, 5 more days midline placed 06/04 blood cx neg to date urology rec vitamin c and mathamine Possible CAP completed abx not requiring supplemental oxygen h/o SIADH on demeclocycline started at SNF - unable to bring in, non-formulary sodium stable paroxysmal afib heart rate controlled continue diltiazem, metoprolol history of watchman device, not on anticoagulation normocytic anemia no bleeding stable occult negative Hypertension BP controlled continue furosemide, metoprolol, Cardizem HLD continue statin Time Spent with Patient Time attestation: Total time managing care of this patient today ____ minutes. Discharge coordination time: Greater than 30 minutes Quality: Safe Use of Opioids Does Pt have an Active Cancer Diagnosis on the Problem List?: No Quality: Stroke Does the patient have a stroke diagnosis?: No Physical Exam Vital Signs: Vital Signs: Last Vital Signs Temp 98.5 F 06/08/22 07:27 Pulse 101 H 06/08/22 07:27 Resp 18 06/08/22 07:27 BP 139/71 06/08/22 07:27 Pulse Ox 96 06/08/22 07:27 O2 Del Method 06/08/22 07:27 O2 Flow Rate 2 06/08/22 07:27 BMI result Body Mass Index 19.8 Appearing in no acute distress head is normocephalic atraumatic eyes pupils are PERRLA sclera is anicteric mouth throat mucous membranes are intact and moist neck is supple no lymphadenopathy, no JVD noted lung sounds are clear to auscultation heart regular rate rhythm, clear S1, S2 positive bowel sounds, abdomen is soft, nontender neuro patient is alert x3, no focal deficits DS: Data Data Completed and Pending Labs on day of discharge: Laboratory Results - last 24 hr 06/08/22 06/08/22 06/08/22 07:30 10:09 12:15 WBC 8.3 RBC 3.12 L Hgb 8.6 L Hct 26.3 L MCV 84.3 MCH 27.6 MCHC 32.7 RDW 15.7 Plt Count 210 MPV 8.8 L Immature Gran % (Auto) 0.5 H Neut % (Auto) 56.6 Lymph % (Auto) 24.0 [place] % (Auto) 8.2 Eos % (Auto) 10.1 H Baso % (Auto) 0.6 Lymph # (Auto) 2.0 [place] # (Auto) 0.7 Eos # (Auto) 0.8 H Baso # (Auto) 0.1 Abs Immat Gran (auto) 0.04 H Absolute Neuts (auto) 4.7 Absolute Nucleated RBC 0.000 Nucleated RBC % (auto) 0.0 Stool Occult Blood NEGATIVE COVID-19 (JAZZ) Negative COVID-19 Clin Com See Note Discharge Plan Discharge Anticipated Discharge Date/Time: 06/08/22 13:20 Patient Disposition: Xfer Inpatient Rehab Fac Discharge Diagnosis: Acute toxic metabolic encephalopathy E coli UTI Community-acquired pneumonia Referrals: [facility] [Outside] - 1 Week Armand Del Cid MD [Primary Care Provider] - 1 Week Discharge Medications: New ascorbic acid (vitamin C) 1,000 mg tablet 1 g PO DAILY 90 Days Qty: 90 1RF methenamine hippurate 1 gram tablet 1 g PO BID 90 Days Qty: 180 1RF Continued magnesium oxide [MagOx] 400 mg (241.3 mg magnesium) Tablet 400 mg PO BID diltiazem HCl [Cartia XT] 120 mg capsule,extended release 24hr 1 cap PO DAILY heparin (porcine) 5,000 unit/mL Solution 5,000 unit SUBCUT Q12H mirtazapine 15 mg Tablet 15 mg PO BEDTIME albuterol sulfate [ProAir HFA] 90 mcg/actuation Hfa Aerosol Inhaler 2 puff INHALATION Q4-6H PRN (Reason: Wheezing) sennosides [senna] 8.6 mg Tablet 8.6 mg PO DAILY acetaminophen 325 mg Tablet 650 mg PO Q4H PRN (Reason: Pain) demeclocycline 150 mg Tablet 150 mg PO BID Rx Instructions: must be taken on empty stomach, at least 1 hr before or 2 hrs after a meal/food metoprolol succinate 100 mg Tablet Extended Release 24 Hr 150 mg PO DAILY simvastatin 10 mg Tablet 10 mg PO DAILY aspirin 81 mg Tablet,Delayed Release (Dr/Ec) 81 mg PO DAILY brimonidine 0.2 % Drops 1 drp OPHTHALMIC (EYE) DAILY docusate sodium [Colace] 100 mg Capsule 100 mg PO BID Discharge Orders: Discharge Order (Routine); Ordered 06/08/22 Ordered By: Wilma Matos Diet: Advance to usual diet Activity on Discharge: As tolerated Stand Alone Forms: Patient Portal Discharge page Care Plan Goals: avoidance of further hospitalizations Health Concerns: Acute toxic metabolic encephalopathy E coli UTI Community-acquired pneumonia Plan of Treatment: Follow-up with primary care provider as needed Follow-up with urologist as needed Take all medications as prescribed Assessment: see discharge summary
[2022-06-08 15:21] VITALS: BP 139/70; PULSE 75; RESP 20; TEMP 36.4; O2SAT 91
== END 2022-06-08 16:50 | DRG 698 ==
LOC: HO.ED 16:06 → HO.EDOVER 16:23 → HO.S3 16:31
PROVIDERS: Physician Assistant Medical; Admitting Provider Nurse Practitioner Acute Care; Emergency Provider Emergency Medicine Emergency Medical Services; PCP Internal Medicine; Visit Provider Nurse Practitioner Acute Care
DX: T83.518A Infection and inflammatory reaction due to other urinary catheter, initial encounter (principal); G92.8 Other toxic encephalopathy; J18.9 Pneumonia, unspecified organism; N39.0 Urinary tract infection, site not specified; Z16.12 Extended spectrum beta lactamase (ESBL) resistance; E22.2 Syndrome of inappropriate secretion of antidiuretic hormone; E78.5 Hyperlipidemia, unspecified; B96.20 Unspecified Escherichia coli [E. coli] as the cause of diseases classified elsewhere; I95.1 Orthostatic hypotension; I48.0 Paroxysmal atrial fibrillation; D64.9 Anemia, unspecified; Z20.822 Contact with and (suspected) exposure to COVID-19; Z85.51 Personal history of malignant neoplasm of bladder; Z87.440 Personal history of urinary (tract) infections; Z95.818 Presence of other cardiac implants and grafts; Z87.891 Personal history of nicotine dependence; Z79.82 Long term (current) use of aspirin; Z79.899 Other long term (current) drug therapy
CPT/HCPCS: 0241U; 36410; 36415; 70450; 71045; 74176; 80048; 80053; 81001; 82272; 82550; 82607; 82746; 83605; 83690; 83735; 83880; 84443; 84484; 85025; 85610; 85730; 87040; 87086; 87088; 87186; 87635; 93005; 94640; 96365; 97116; 97162; 97530; 99285; J0696; J1642; J1643; J2185; J2405

== ENCOUNTER → 2022-07-30 10:59 | Outpatient (BNVA) | payer OTHER, SELFPAY | PROVIDERS: PCP Internal Medicine; Visit Provider Urology | DX: Z13.89 Encounter for screening for other disorder (principal) ==